=== PATIENT | female | born 1995 | race Two or more races ===

== ENCOUNTER 2019-09-07 08:03 | Outpatient (CLI) | payer MEDICAID ==
--- NOTE | 2019-09-07 09:19 | Ultrasound Report ---
Reason: TEST POSITIVE Procedure Date: 09/07/2019 Accession Number: [id number] / [id number] Procedure: US - OB First Trimester CPT Code: Final Report FULL RESULT: EXAM: FIRST TRIMESTER OBSTETRIC ULTRASOUND (Less than 11 weeks) EXAM DATE: 09/07/2019 08:58 AM. CLINICAL HISTORY: TEST POSITIVE. LMP: 07/19/2019. COMPARISONS: None. TECHNIQUE: Transabdominal and transvaginal ultrasound examination with static image documentation. CLINICAL DATES: EGA 7 weeks 1 day with FLOR 04/24/2020 based on LMP. ASSESSMENT: Gestational Sac: Single intrauterine. Normal shape. Mean gestational sac diameter: 41.9 mm = 9 weeks 5 days. Embryo: CRL (crown-rump length) 23.8 mm = 9 weeks 1 day (FLOR 04/10/2020). Cardiac activity: 165 beats per minute. Yolk sac: 4.4 mm. Amniotic fluid: Not accurately assessed at this gestational age. Early placenta: Posterior. Other: No perigestational fluid collection demonstrated. MATERNAL STRUCTURES: Uterus: Anteverted. Unremarkable. Cervix: Closed. Right Ovary/Adnexa: The ovary measures 3.0 x 2.9 x 2.2 cm, volume 11.0 cc. Unremarkable. Left Ovary/Adnexa: The ovary measures 3.4 x 3.2 x 2.2 cm, volume 12.5 cc. Seen only transabdominally. Free Fluid: None. Other: None. IMPRESSION: 1. Single viable intrauterine at EGA 9 weeks 1 day with FLOR 04/10/2020 based on crown-rump length, which is discordant with clinical dates (EGA 7 weeks 1 day, FLOR 04/24/2020 by LMP). 2. Assigned dating is FLOR 04/10/2020 based on current ultrasound. RADIA
--- NOTE | 2019-09-07 10:59 | Ultrasound Report ---
Reason: POSITIVE TEST, DATING Procedure Date: 09/07/2019 Accession Number: [id number] / [id number] Procedure: US - OB Transvaginal CPT Code: Final Report FULL RESULT: EXAM: FIRST TRIMESTER OBSTETRIC ULTRASOUND (Less than 11 weeks) EXAM DATE: 09/07/2019 08:58 AM. CLINICAL HISTORY: TEST POSITIVE. LMP: 07/19/2019. COMPARISONS: None. TECHNIQUE: Transabdominal and Transvaginal ultrasound examination with static image documentation. CLINICAL DATES: EGA 7 weeks 1 day with FLOR 04/24/2020 based on LMP. ASSESSMENT: Gestational Sac: Single intrauterine. Mean gestational sac diameter: 42 mm = 9 weeks 5 days. Embryo: CRL (crown-rump length) 24 mm = 9 weeks 1 day. Cardiac activity: 164 beats per minute. Yolk sac: 4 mm. Amniotic fluid: Not accurately assessed at this gestational age. Early placenta: Not visible at this gestational age. Other: No perigestational fluid collection demonstrated. MATERNAL STRUCTURES: Uterus: Anteverted. Unremarkable. Cervix: Closed. Right Ovary/Adnexa: The ovary measures 3.3 x 2.9 x 2.2 cm, volume 11.0 cc. Unremarkable. Left Ovary/Adnexa: The ovary measures 3.4 x 3.2 x 2.2 cm, volume 12.5 cc. Unremarkable. Free Fluid: None. Other: None. IMPRESSION: 1. Single viable intrauterine at EGA 9 weeks 1 day with FLOR 04/10/2020 based on crown-rump length, which is discordant with clinical dates. 2. Assigned dating is FLOR 04/10/2020 based on current ultrasound. RADIA
== END 2019-09-07 08:04 | disposition home or self-care (01) ==
LOC: DI 08:03
PROVIDERS: ATTEND Obstetrics & Gynecology
DX: Z32.01 Encounter for pregnancy test, result positive (principal)
CPT/HCPCS: 76801; 76817

== ENCOUNTER 2019-10-04 07:00 | Outpatient (CLI) | payer MEDICAID ==
[2019-10-04 19:01] LABS: MUDS CUTOFF CONCENTRATIONS CUTOFF CONC BELOW:
[2019-10-04 19:17] LABS: BILIRUBIN,URINE NEGATIVE (NEGATIVE); GLUCOSE, URINE (UA) NEGATIVE (NEGATIVE); KETONES,URINE (UA) NEGATIVE (NEGATIVE); LEUKOCYTE ESTERASE, URINE MODERATE (NEGATIVE); NITRITE,URINE NEGATIVE (NEGATIVE); OCCULT BLOOD,URINE NEGATIVE (NEGATIVE); PH,URINE 6.5 PH (5.0-7.5); PROTEIN,URINE NEGATIVE (NEGATIVE); UROBILINOGEN,URINE 0.2 (NORMAL) E.U./dL (NORMAL)
[2019-10-04 19:36] LABS: BACTERIA,URINE Rare /HPF (None Seen); CLARITY,URINE CLEAR (CLEAR); RBC,URINE None Seen /HPF (0-5); SQUAMOUS EPITHELIAL CELL,UR MANY Squamous (<= Few)
[2019-10-04 19:51] LABS: AMPHETAMINE SCREEN,URINE NEGATIVE (NEGATIVE); BENZODIAZEPINES SCREEN, URINE NEGATIVE (NEGATIVE); COCAINE SCREEN URINE NEGATIVE (NEGATIVE); METHADONE SCREEN, URINE NEGATIVE (NEGATIVE); METHAMPHETAMINES SCREEN, URINE NEGATIVE (NEGATIVE); OPIATE SCREEN, URINE NEGATIVE (NEGATIVE); OXYCODONE SCREEN, URINE NEGATIVE (NEGATIVE); PROPOXYPHENE SCREEN, URINE NEGATIVE (NEGATIVE); TRICYCLIC ANTIDEPRESSANT,URINE NEGATIVE (NEGATIVE)
[2019-10-04 23:46] LABS: TRICHOMONAS VAGINALIS DNA NEGATIVE (NEGATIVE)
[2019-10-05 00:39] LABS: CANDIDA GROUP DNA POSITIVE (NEGATIVE); CANDIDA KRUSEI DNA NEGATIVE (NEGATIVE); TRICHOMONAS VAGINALIS DNA NEGATIVE (NEGATIVE)
== END 2019-10-04 23:59 | disposition home or self-care (01) ==
LOC: LAB.R 07:00
PROVIDERS: ATTEND Advanced Practice Midwife
DX: Z34.90 Encounter for supervision of normal pregnancy, unspecified, unspecified trimester (principal); Z11.3 Encounter for screening for infections with a predominantly sexual mode of transmission
CPT/HCPCS: 80306; 81001; 87086; 87491; 87591; 87661; 87801

== ENCOUNTER 2019-10-11 08:00 | Outpatient (CLI) | payer MEDICAID ==
[2019-10-11 17:45] LABS: BASOPHILS % (AUTO) 0.1 %; EOSINOPHILS # (AUTO) 0.1 10^3/uL (0.0-0.7); EOSINOPHILS % (AUTO) 0.9 %; HGB - HEMOGLOBIN 13.4 g/dL (12.0-16.0); LYMPHOCYTES # (AUTO) 3.2 10^3/uL (1.5-3.5); LYMPHOCYTES % (AUTO) 30.3 %; MEAN CORPUSCULAR HEMOGLOBIN 29.6 pg (27.0-31.0); MEAN CORPUSCULAR HGB CONC 33.3 g/dL (32.0-36.0); MEAN CORPUSCULAR VOLUME 88.9 fL (81.0-99.0); MEAN PLATELET VOLUME 10.8 fL (7.9-10.8); MONOCYTES # (AUTO) 0.6 10^3/uL (0.0-1.0); MONOCYTES % (AUTO) 5.5 %; NEUTROPHILS # (AUTO) 6.6 10^3/uL (1.5-6.6); NEUTROPHILS % (AUTO) 62.6 %; PLT - PLATELET COUNT 290 10^3/uL (130-450); RED BLOOD COUNT 4.52 10^6/uL (4.20-5.40); RED CELL DISTRIBUTION WIDTH 13.6 % (12.0-15.0); WHITE BLOOD COUNT 10.5 x10^3/uL (4.8-10.8)
[2019-10-12 08:23] LABS: HIV AG/AB 4TH GEN NON-REACTIVE (NON-REACTIVE)
[2019-10-12 12:54] LABS: HEPATITIS B SURFACE ANTIGEN NON-REACTIVE (NON-REACTIVE); HEPATITIS C ANTIBODY NON-REACTIVE (NON-REACTIVE)
== END 2019-10-11 23:59 | disposition home or self-care (01) ==
LOC: LAB.WCP 08:00
PROVIDERS: ATTEND Advanced Practice Midwife
DX: Z34.90 Encounter for supervision of normal pregnancy, unspecified, unspecified trimester (principal)
CPT/HCPCS: 36415; 81599; 85025; 86592; 86762; 86803; 86850; 86900; 86901; 87340; 87389

== ENCOUNTER 2019-11-17 08:00 | Outpatient (CLI) | payer MEDICAID ==
[2019-11-17 20:52] LABS: CANDIDA GROUP DNA NEGATIVE (NEGATIVE); CANDIDA KRUSEI DNA NEGATIVE (NEGATIVE); TRICHOMONAS VAGINALIS DNA NEGATIVE (NEGATIVE)
[2019-11-17 21:39] LABS: TRICHOMONAS VAGINALIS DNA NEGATIVE (NEGATIVE)
== END 2019-11-17 23:59 | disposition home or self-care (01) ==
LOC: LAB.R 08:00
PROVIDERS: ATTEND Advanced Practice Midwife
DX: A56.09 Other chlamydial infection of lower genitourinary tract (principal); N76.0 Acute vaginitis; B37.3 Candidiasis of vulva and vagina
CPT/HCPCS: 87491; 87591; 87661; 87801

== ENCOUNTER 2019-11-17 11:37 | Outpatient (CLI) | payer MEDICAID | END 2019-11-17 11:38 | disposition home or self-care (01) | LOC: LAB 11:37 | PROVIDERS: ATTEND Advanced Practice Midwife | DX: Z34.90 Encounter for supervision of normal pregnancy, unspecified, unspecified trimester (principal) | CPT/HCPCS: 36415; 84443 ==

== ENCOUNTER 2019-11-19 13:27 | Outpatient (CLI) | payer MEDICAID ==
[2019-11-19 13:55] VITALS: BP 125/69
--- NOTE | 2019-11-19 14:38 | PROVIDER PROGRESS NOTE ---
- HPI Chief Complaint: Other Current : 23 yo at 19+4 wga here with pelvic pain and a gush of fluid. No recent intercourse. CT and BV in early with recent TOYA. Patient reports having bilateral lower quadrant pain radiating to back. Has a picture of the fluid in her underwear, colorless and ran to back of underwear. Did not completely soak undergarments. Occasionally loses urine with coughing or sneezing. [place] fluid in the vagina as if she was having start of menses. No N/V. Pain mild. Only occasionally feels movement at baseline. Vital Signs Temperature 98.2 F 11/19/19 13:53 Heart Rate 86 11/19/19 13:53 Respiratory Rate 16 11/19/19 13:53 Blood Pressure 125/69 11/19/19 13:53 Temperature 98.2 F 11/19/19 13:53 Heart Rate 86 11/19/19 13:53 Respiratory Rate 16 11/19/19 13:53 Blood Pressure 125/69 11/19/19 13:53 O2 Saturation - Exam GEN: NAD RESP: nl effort CV: RR ABD: gravid, S&NT BACK: No CVA tenderness or palpable tenderness. Cannot elicit discomfort EXT: BLE edema, 1+ FHTs 150s SSE: closed, long, small amount of white mucus, no fluid per RN exam GCCT, Vaginitis panel, Rom+ collected Neg nitrazine UA pending - Plan Plan: 23 yo at 19+4 ega with pelvic pain and gush of fluid GCCT/vaginitis panel/ ROM+/UA pending TVCL and MELINDA ordered Nitrazne negative.
[2019-11-19 15:05] LABS: MUDS CUTOFF CONCENTRATIONS CUTOFF CONC BELOW:
[2019-11-19 15:09] LABS: BILIRUBIN,URINE NEGATIVE (NEGATIVE); GLUCOSE, URINE (UA) NEGATIVE (NEGATIVE); KETONES,URINE (UA) NEGATIVE (NEGATIVE); LEUKOCYTE ESTERASE, URINE NEGATIVE (NEGATIVE); NITRITE,URINE NEGATIVE (NEGATIVE); OCCULT BLOOD,URINE NEGATIVE (NEGATIVE); PROTEIN,URINE NEGATIVE (NEGATIVE); UROBILINOGEN,URINE 0.2 (NORMAL) E.U./dL (NORMAL)
[2019-11-19 15:24] LABS: AMPHETAMINE SCREEN,URINE NEGATIVE (NEGATIVE); BENZODIAZEPINES SCREEN, URINE NEGATIVE (NEGATIVE); COCAINE SCREEN URINE NEGATIVE (NEGATIVE); METHADONE SCREEN, URINE NEGATIVE (NEGATIVE); METHAMPHETAMINES SCREEN, URINE NEGATIVE (NEGATIVE); OPIATE SCREEN, URINE NEGATIVE (NEGATIVE); OXYCODONE SCREEN, URINE NEGATIVE (NEGATIVE); PROPOXYPHENE SCREEN, URINE NEGATIVE (NEGATIVE); TRICYCLIC ANTIDEPRESSANT,URINE NEGATIVE (NEGATIVE)
[2019-11-19 15:27] LABS: RUPTURE OF MEMBRANES PLUS NEGATIVE (NEGATIVE)
[2019-11-19 15:30] LABS: BACTERIA,URINE Rare /HPF (None Seen); CLARITY,URINE CLEAR (CLEAR); RBC,URINE None Seen /HPF (0-5); SQUAMOUS EPITHELIAL CELL,UR MANY Squamous (<= Few)
[2019-11-19 16:58] LABS: CANDIDA GROUP DNA NEGATIVE (NEGATIVE); CANDIDA KRUSEI DNA NEGATIVE (NEGATIVE); TRICHOMONAS VAGINALIS DNA NEGATIVE (NEGATIVE)
--- NOTE | 2019-11-19 17:54 | Ultrasound Report ---
PROCEDURE: OB Transvaginal INDICATIONS: please assess cervical length and MELINDA please OUTSIDE/PRIOR DATING DATA: Last menstrual period (LMP): 07/19/2019. LMP-based estimated date of delivery (FLOR): 04/24/2020. First dating scan (date and location): 09/07/2019. Estimated date of delivery (FLOR) from first dating scan: 04/10/2020. TECHNIQUE: Real-time scanning was performed of the fetus, with image documentation. Endovaginal scanning: Not performed. COMPARISON: OB ultrasound 09/07/2019. FINDINGS: General: A single living intrauterine gestation is present. Presentation: Variable. Placenta: Placental position is posterior, without previa. Amniotic fluid index: 16.4 cm, normal for gestational age. (Largest pocket 5.1 cm). heart rate: 135 beats per minute. Maternal cervical canal: 3.3 cm long; normal length is 2.5 cm or more. No funneling. Estimated gestational age from initial scan: 19 weeks 4 days. Composite gestational age from present scan: Not performed Measurement variability for biometric dating: +/- 10 days from 12-20 weeks gestation, +/- 2 weeks fro m 20-30 weeks gestation, +/- 3 weeks for 30 weeks gestation or later. IMPRESSION: 1. Nelson living intrauterine at 19 weeks 4 days based on prior dating. 2. Normal placenta and amniotic fluid. 3. Normal cervical length. No funneling. Reviewed by: Oh Figueredo MD on 11/19/2019 5:53 PM PDT Approved by: Oh Figueredo MD on 11/19/2019 5:53 PM PDT Station ID: [id number]
--- NOTE | 2019-11-19 17:57 | Ultrasound Report ---
PROCEDURE: OB Transvaginal INDICATIONS: please assess cervical length and MELINDA please OUTSIDE/PRIOR DATING DATA: Last menstrual period (LMP): 07/19/2019. LMP-based estimated date of delivery (FLOR): 04/24/2020. First dating scan (date and location): 09/07/2019. Estimated date of delivery (FLOR) from first dating scan: 04/10/2020. TECHNIQUE: Real-time scanning was performed of the fetus, with image documentation. Endovaginal scanning: Performed. COMPARISON: OB ultrasound 09/07/2019. FINDINGS: General: A single living intrauterine gestation is present. Presentation: Variable. Placenta: Placental position is posterior, without previa. Amniotic fluid index: 16.4 cm, normal for gestational age. (Largest pocket 5.1 cm). heart rate: 135 beats per minute. Maternal cervical canal: 3.3 cm long; normal length is 2.5 cm or more. No funneling. Estimated gestational age from initial scan: 19 weeks 4 days. Composite gestational age from present scan: Not performed Measurement variability for biometric dating: +/- 10 days from 12-20 weeks gestation, +/- 2 weeks fro m 20-30 weeks gestation, +/- 3 weeks for 30 weeks gestation or later. IMPRESSION: 1. Nelson living intrauterine at 19 weeks 4 days based on prior dating. 2. Normal placenta and amniotic fluid. 3. Normal cervical length. No funneling. Reviewed by: Oh Figueredo MD on 11/19/2019 5:56 PM PDT Approved by: Oh Figueredo MD on 11/19/2019 5:56 PM PDT Station ID: [id number]
[2019-11-19 21:28] LABS: TRICHOMONAS VAGINALIS DNA NEGATIVE (NEGATIVE)
== END 2019-11-19 17:15 | disposition home or self-care (01) ==
LOC: WFO 13:27 → FBP 13:32 → WFO 17:15
PROVIDERS: ATTEND Obstetrics & Gynecology
DX: O99.89 Other specified diseases and conditions complicating pregnancy, childbirth and the puerperium (principal); Z3A.19 19 weeks gestation of pregnancy; R10.2 Pelvic and perineal pain; N89.8 Other specified noninflammatory disorders of vagina
CPT/HCPCS: 76815; 76817; 80306; 81001; 84112; 87086; 87491; 87591; 87661; 87801; 99213

== ENCOUNTER 2019-11-24 10:57 | Outpatient (CLI) | payer MEDICAID ==
--- NOTE | 2019-11-24 16:25 | Ultrasound Report ---
PROCEDURE: OB Detailed Eval INDICATIONS: ENCOUNTER FOR OTHER SPECIFIED SCREENING OUTSIDE/PRIOR DATING DATA: Last menstrual period (LMP): 07/19/2019. LMP-based estimated date of delivery (FLOR): 03/28/2020. First dating scan (date and location): 09/07/2019. Estimated date of delivery (FLOR) from first dating scan: 06/10/2019. TECHNIQUE: Real-time scanning was performed of the fetus, with image documentation and biometric measurements. COMPARISON: OB ultrasound 09/07/2019, 11/19/2019 FINDINGS: General: A single living intrauterine gestation is present. Presentation: Breech Placenta: Placental position is posterior, without previa. Amniotic fluid index: 14.2 cm, 50th percentile for gestational age. Largest pocket 3.9 cm heart rate: 155 beats per minute. Maternal cervical canal: 4.5 cm long; normal length is 2.5 cm or more. biometrics: Biparietal diameter: 4.6 cm 19 weeks 6 days Head circumference: 17.5 cm 20 weeks 0 days Abdominal circumference: 14.8 cm 20 weeks 1 day Femur length: 3.2 cm 19 weeks 6 days Estimated gestational age from initial scan: 20 weeks 2 days Composite gestational age from present scan: 19 weeks 5 days Estimated weight and percentile: 325 g 29th percentile Measurement variability in biometric dating: +/- 10 days from 12-20 weeks gestation, +/- 2 weeks from 20-30 weeks gestation, +/- 3 weeks at 30 weeks gestation or later. Anatomic survey: Neuro: Ventricles are normal at less than 10 mm. Cisterna magna is normal at 3-11 mm. Cerebellum i s normal in size and morphology. Nuchal skin fold: Normal at less than 6 mm between 14 and 20 weeks gestational age. Face: Nose and lips, facial profile are normal. Spine: No evidence for spina bifida. Heart: 4-chambered heart and ventricular outflow tracts are suboptimally evaluated. Diaphragm: Diaphragm is intact. Stomach: Left-sided stomach is present. Kidneys: No hydronephrosis. Normal is less than 5 mm in 2nd trimester, less than 7 mm in 3rd trimester. Cord: 3 vessel cord has orthotopic insertion. Bladder: Normal in size. Extremities: All 4 extremities are visualized. IMPRESSION: 1. Single live intrauterine with ultrasound gestational age today of 19 weeks 5 days, kristin red to ultrasound age of 20 weeks 2 days from initial ultrasound. FLOR of 04/10/2020. 2. heart and outflow tracts are suboptimally evaluated. Follow-up evaluation is recommended. Reviewed by: Elsie Houston MD on 11/24/2019 4:24 PM PDT Approved by: Elsie Houston MD on 11/24/2019 4:24 PM PDT Station ID: [id number]
== END 2019-11-24 10:58 | disposition home or self-care (01) ==
LOC: DI 10:57
PROVIDERS: ATTEND Advanced Practice Midwife
DX: Z36.89 Encounter for other specified antenatal screening (principal)
CPT/HCPCS: 76811

== ENCOUNTER 2020-01-14 09:52 | Outpatient (CLI) | payer MEDICAID ==
[2020-01-14 11:07] LABS: HGB - HEMOGLOBIN 12.3 g/dL (12.0-16.0); MEAN CORPUSCULAR HEMOGLOBIN 31.5 pg (27.0-31.0); MEAN CORPUSCULAR HGB CONC 34.9 g/dL (32.0-36.0); MEAN PLATELET VOLUME 9.7 fL (7.9-10.8); RED BLOOD COUNT 3.91 10^6/uL (4.20-5.40); RED CELL DISTRIBUTION WIDTH 13.8 % (12.0-15.0); WHITE BLOOD COUNT 8.5 x10^3/uL (4.8-10.8)
== END 2020-01-14 09:53 | disposition home or self-care (01) ==
LOC: LAB 09:52
PROVIDERS: ATTEND Advanced Practice Midwife
DX: Z34.90 Encounter for supervision of normal pregnancy, unspecified, unspecified trimester (principal)
CPT/HCPCS: 36415; 82950; 85027

== ENCOUNTER 2022-06-11 08:00 | Outpatient (CLI) | payer MEDICAID ==
[2022-06-11 18:32] LABS: BILIRUBIN,URINE NEGATIVE (NEGATIVE); GLUCOSE, URINE (UA) NEGATIVE (NEGATIVE); KETONES,URINE (UA) TRACE mg/dL (NEGATIVE); LEUKOCYTE ESTERASE, URINE SMALL (NEGATIVE); NITRITE,URINE POSITIVE (NEGATIVE); OCCULT BLOOD,URINE TRACE-INTA (NEGATIVE); PROTEIN,URINE NEGATIVE (NEGATIVE); UROBILINOGEN,URINE 0.2 (NORMAL) E.U./dL (NORMAL)
[2022-06-11 18:35] LABS: CLARITY,URINE CLOUDY (CLEAR); HCG UR QUAL NEGATIVE
[2022-06-11 19:01] LABS: BACTERIA,URINE Many /HPF (None Seen); RBC,URINE 0-5 /HPF (0-5); SQUAMOUS EPITHELIAL CELL,UR MOD Squamous (<= Few); WBC,URINE >25 /HPF (0-5)
[2022-06-11 22:19] LABS: BACTERIAL VAGINOSIS DNA NEGATIVE (NEGATIVE); CANDIDA GLABRATA DNA NEGATIVE (NEGATIVE); CANDIDA GROUP DNA NEGATIVE (NEGATIVE); CANDIDA KRUSEI DNA NEGATIVE (NEGATIVE); TRICHOMONAS VAGINALIS DNA NEGATIVE (NEGATIVE)
[2022-06-12 00:40] LABS: CHLAMYDIA TRACHOMATIS DNA NEGATIVE (NEGATIVE); NEISSERIA GONORRHOEAE DNA NEGATIVE (NEGATIVE)
== END 2022-06-11 23:59 | disposition home or self-care (01) ==
LOC: LAB.N 08:00
PROVIDERS: ATTEND Nurse Practitioner
DX: N89.8 Other specified noninflammatory disorders of vagina (principal); R30.0 Dysuria; R82.79 Other abnormal findings on microbiological examination of urine
CPT/HCPCS: 81001; 81025; 81514; 87077; 87086; 87181; 87491; 87591; 87661

== ENCOUNTER 2023-06-05 08:00 | Outpatient (CLI) | payer MEDICAID ==
[2023-06-05 17:54] LABS: BILIRUBIN,URINE NEGATIVE (NEGATIVE); GLUCOSE, URINE (UA) NEGATIVE (NEGATIVE); KETONES,URINE (UA) 15 mg/dL (NEGATIVE); LEUKOCYTE ESTERASE, URINE SMALL (NEGATIVE); NITRITE,URINE NEGATIVE (NEGATIVE); OCCULT BLOOD,URINE NEGATIVE (NEGATIVE); PH,URINE 6.5 PH (5.0-7.5); PROTEIN,URINE NEGATIVE (NEGATIVE); UROBILINOGEN,URINE 0.2 (NORMAL) E.U./dL (NORMAL)
[2023-06-05 18:23] LABS: BACTERIA,URINE Few /HPF (None Seen); CLARITY,URINE CLEAR (CLEAR); RBC,URINE 0-5 /HPF (0-5); SQUAMOUS EPITHELIAL CELL,UR RARE Squamous (<= Few)
== END 2023-06-05 23:59 | disposition home or self-care (01) ==
LOC: LAB.WC 08:00
PROVIDERS: ATTEND Nurse Practitioner
DX: Z34.90 Encounter for supervision of normal pregnancy, unspecified, unspecified trimester (principal)
CPT/HCPCS: 81001; 87086

== ENCOUNTER 2023-06-17 08:01 | Outpatient (CLI) | payer MEDICAID ==
--- NOTE | 2023-06-17 10:08 | Ultrasound Report ---
PROCEDURE: OB 1st Trimester INDICATIONS: POSITIVE TEST OUTSIDE/PRIOR DATING DATA: Last menstrual period (LMP): Unknown. LMP-based estimated date of delivery (FLOR): Not applicable. First dating scan (date and location): Today's exam. Estimated date of delivery (FLOR) from first dating scan: 12/20/2023. TECHNIQUE: Real-time scanning was performed of the fetus, with image documentation and biometric measurements. Endovaginal scanning: Not performed. COMPARISON: None. FINDINGS: General: A single living intrauterine gestation is present. Presentation: Variable Placenta: Placental position is anterior, without previa. heart rate: 150 beats per minute. Maternal cervical canal: 4.0 cm long; normal length is 2.5 cm or more. biometrics: Biparietal diameter: 2.2 cm, 13 weeks 4 days Head circumference: 8.4 cm, 13 weeks 5 days Abdominal circumference: 6.8 cm, 13 weeks 3 days Femur length: 1.09 cm, 13 weeks 2 days Estimated gestational age from initial scan: not applicable. Composite gestational age from present scan: 13 weeks 3 days Estimated weight and percentile: 75 g Measurement variability for biometric dating: +/- 10 days from 12-20 weeks gestation, +/- 2 weeks fro m 20-30 weeks gestation, +/- 3 weeks for 30 weeks gestation or later. IMPRESSION: Single living intrauterine at 13 weeks 3 days, FLOR of 12/17/2023. Reviewed by: Mario Carroll MD on 06/17/2023 10:07 AM PST Approved by: Mario Carroll MD on 06/17/2023 10:07 AM PST Station ID: [id number]
== END 2023-06-17 08:02 | disposition home or self-care (01) ==
LOC: DI 08:01
PROVIDERS: ATTEND Nurse Practitioner
DX: Z34.92 Encounter for supervision of normal pregnancy, unspecified, second trimester (principal)

== ENCOUNTER 2023-06-20 08:00 | Outpatient (CLI) | payer MEDICAID ==
[2023-06-20 20:27] LABS: CHLAMYDIA TRACHOMATIS DNA NEGATIVE (NEGATIVE); NEISSERIA GONORRHOEAE DNA NEGATIVE (NEGATIVE); TRICHOMONAS VAGINALIS DNA NEGATIVE (NEGATIVE)
== END 2023-06-20 23:59 | disposition home or self-care (01) ==
LOC: LAB.WC 08:00
PROVIDERS: ATTEND Nurse Practitioner
DX: Z11.3 Encounter for screening for infections with a predominantly sexual mode of transmission (principal)
CPT/HCPCS: 87491; 87591; 87661

== ENCOUNTER 2023-07-02 14:55 | Outpatient (CLI) | payer MEDICAID ==
[2023-07-02 15:27] LABS: BASOPHILS % (AUTO) 0.1 %; EOSINOPHILS # (AUTO) 0.2 10^3/uL (0.0-0.7); EOSINOPHILS % (AUTO) 2.7 %; HCT - HEMATOCRIT 37.1 % (37.0-47.0); HGB - HEMOGLOBIN 12.8 g/dL (12.0-16.0); LYMPHOCYTES # (AUTO) 2.8 10^3/uL (1.5-3.5); LYMPHOCYTES % (AUTO) 36.2 %; MEAN CORPUSCULAR HEMOGLOBIN 30.3 pg (27.0-31.0); MEAN CORPUSCULAR HGB CONC 34.5 g/dL (32.0-36.0); MEAN CORPUSCULAR VOLUME 87.9 fL (81.0-99.0); MEAN PLATELET VOLUME 10.6 fL (7.9-10.8); MONOCYTES # (AUTO) 0.4 10^3/uL (0.0-1.0); MONOCYTES % (AUTO) 5.1 %; NEUTROPHILS # (AUTO) 4.3 10^3/uL (1.5-6.6); NEUTROPHILS % (AUTO) 55.6 %; PLT - PLATELET COUNT 204 10^3/uL (130-450); RED BLOOD COUNT 4.22 10^6/uL (4.20-5.40); RED CELL DISTRIBUTION WIDTH 13.4 % (12.0-15.0); WHITE BLOOD COUNT 7.7 x10^3/uL (4.8-10.8)
[2023-07-02 16:35] LABS: CREATININE,URINE 34.6 mg/dL; PROTEIN/CREATININE RATIO,URINE 0.1 (<=0.2)
[2023-07-02 16:35] LABS: ALBUMIN 3.8 g/dL (3.2-5.5); ALBUMIN/GLOBULIN RATIO 1.5 (1.0-2.2); BILIRUBIN,TOTAL 0.3 mg/dL (0.2-1.0); CALCIUM 9.7 mg/dL (8.5-10.3); CREATININE 0.5 mg/dL (0.6-1.3); POTASSIUM 3.5 mmol/L (3.5-4.5); TOTAL PROTEIN 6.4 g/dL (6.4-8.9)
[2023-07-02 16:44] LABS: THYROID STIMULATING HORMONE 1.56 uIU/mL (0.34-5.60)
[2023-07-03 07:11] LABS: HBsAG SCREEN Negative (Negative); RPR Non Reactive (Non Reactive)
[2023-07-03 08:11] LABS: VARICELLA-ZOSTER AB IGG 1713 index (Immune >165)
[2023-07-04 00:08] LABS: HCV AB Non Reactive (Non Reactive); HIV SCREEN 4TH GENERATION Non Reactive (Non Reactive)
== END 2023-07-02 14:56 | disposition home or self-care (01) ==
LOC: LAB 14:55
PROVIDERS: ATTEND Nurse Practitioner
DX: O99.891 Other specified diseases and conditions complicating pregnancy (principal); I49.9 Cardiac arrhythmia, unspecified; Z87.59 Personal history of other complications of pregnancy, childbirth and the puerperium
CPT/HCPCS: 36415; 80053; 82570; 84156; 84443; 84550; 85025; 85027; 86592; 86762; 86787; 86803; 86850; 86900; 86901; 87340; 87389

== ENCOUNTER 2023-08-06 12:11 | Outpatient (CLI) | payer MEDICAID | END 2023-08-06 12:12 | disposition home or self-care (01) | LOC: LAB 12:11 | PROVIDERS: ATTEND Nurse Practitioner | DX: O09.92 Supervision of high risk pregnancy, unspecified, second trimester (principal); Z86.32 Personal history of gestational diabetes | CPT/HCPCS: 36415; 82105; 82950 ==

== ENCOUNTER 2023-08-11 19:32 | Outpatient (CLI) | payer MEDICAID ==
[2023-08-11 20:22] VITALS: BP 118/57
--- NOTE | 2023-08-11 20:32 | PROVIDER PROGRESS NOTE ---
- HPI Chief Complaint: Pain, non-labor Current : Vital Signs Temperature 98.8 F 08/11/23 19:46 Heart Rate 72 08/11/23 19:46 Respiratory Rate 18 08/11/23 19:46 Blood Pressure 107/68 08/11/23 19:46 Temperature 98.8 F 08/11/23 19:46 Heart Rate 67 08/11/23 20:21 Respiratory Rate 18 08/11/23 20:21 Blood Pressure 118/57 L 08/11/23 20:21 O2 Saturation If not protocol: Oxygen Flow, liters/minute - Plan Plan: Patient is a 27-year-old -0-0-1 at 21 weeks 1 day gestation presenting today for backache. 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 She had some lower abdominal cramping earlier this morning, but nothing currently. Has good movement. No leaking or bleeding. Does not believe she has contractions. No dysuria. Physical Exam Constitutional: alert, no acute distress, well hydrated, well developed, well nourished, appropriate dress. Cardiovascular: Regular rate and rhythm. Respiratory: no respiratory distress. Abdomen: nondistended, nontender, no guarding. Back: No paraspinal tenderness. Minimal amount bilaterally in lateral lumbar area. No CVA tenderness. Psych: affect and mood appropriate, normal interaction, good eye contact. heart tones: 140s. [place]: Quiescent Assessment and plan 1. Back strain -Patient does not appear to be in any significant distress. -Gave patient handout on back exercises/stretches. Heating pad okay on the back and warm baths. Can take Tylenol. -Educated on lifting restrictions and encouraged conversation with her employer about these. She is already given her 2 weeks notice and will look for a different job that does not require her to lift as much. 2. 21 weeks gestation -Routine OB care -No distress or abdominal contractions seen on monitor. 3. Abdominal cramps -Continue to monitor. If these return, can call for advice or come back for assistance. If they do not return, may be related to muscle tightness with flexing back.
== END 2023-08-11 20:30 | disposition home or self-care (01) ==
LOC: WFO 19:32 → FBP 19:34 → WFO 20:30
PROVIDERS: ATTEND Obstetrics & Gynecology
DX: O9A.212 Injury, poisoning and certain other consequences of external causes complicating pregnancy, second trimester (principal); S39.012A Strain of muscle, fascia and tendon of lower back, initial encounter; O99.891 Other specified diseases and conditions complicating pregnancy; R10.30 Lower abdominal pain, unspecified; Z3A.21 21 weeks gestation of pregnancy; X50.9XXA Other and unspecified overexertion or strenuous movements or postures, initial encounter; X50.0XXA Overexertion from strenuous movement or load, initial encounter
CPT/HCPCS: 99212; 99213

== ENCOUNTER 2023-08-13 07:10 | Outpatient (CLI) | payer MEDICAID ==
--- NOTE | 2023-08-13 20:47 | Ultrasound Report ---
PROCEDURE: OB Anatomy Scan INDICATIONS: SUPERVISION OF OUTSIDE/PRIOR DATING DATA: Last menstrual period (LMP): Unknown. LMP-based estimated date of delivery (FLOR): Unknown. First dating scan (date and location): 06/17/2023. Estimated date of delivery (FLOR) from first dating scan: 12/20/2023. The below data below was generated using the study generated FLOR of 12/20/2023 TECHNIQUE: Real-time scanning was performed of the fetus, with image documentation and biometric measurements. Endovaginal scanning: Not performed. COMPARISON: 06/17/2023 FINDINGS: General: A single living intrauterine gestation is present. Presentation: Variable Placenta: Placental position is anterior, without previa. Amniotic fluid index: 12.6 cm, within normal limits for gestational age. heart rate: 145 beats per minute. Maternal cervical canal: 4.5 cm long; normal length is 2.5 cm or more. biometrics: Biparietal diameter: 5.0 cm, 21 weeks, 0 day, 27% Head circumference: 19.0 cm, 21 weeks, 2 days, 28% Abdominal circumference: 16.6 cm, 21 weeks, 5 days, 45% Femur length: 3.6 cm, 21 weeks, 2 days, 31% Estimated gestational age from initial scan: 21 weeks, 4 days Composite gestational age from present scan: 21 weeks, 2 days Estimated weight and percentile: 425.5 g, 38% Measurement variability in biometric dating: +/- 10 days from 12-20 weeks gestation, +/- 2 weeks from 20-30 weeks gestation, +/- 3 weeks at 30 weeks gestation or later. Anatomic survey: Neuro: Ventricles are normal at less than 10 mm. Cisterna magna is normal at 3-11 mm. Cerebellum i s normal in size and morphology. Nuchal skin fold: 6.2 mm. Normal at less than 6 mm between 14 and 20 weeks gestational age. Face: Nose and lips, facial profile are normal. Spine: No evidence for spina bifida. Heart: 4-chambered heart is present, with normal ventricular outflow tracts. Diaphragm: Diaphragm is intact. Stomach: Left-sided stomach is present. Kidneys: No hydronephrosis. Normal is less than 5 mm in 2nd trimester, less than 7 mm in 3rd trimester. Cord: 3 vessel cord has orthotopic insertion. Bladder: Normal in size. Extremities: All 4 extremities are visualized. IMPRESSION: 1. Single live intrauterine gestation with fetus in variable presentation. heart rate is 145 bp m. Normal MELINDA equals 12.6 cm. Normal growth with estimated weight at 38%. 2. Borderline thickened nuchal fold as above. 3. Rest of the anatomic survey is normal. Reviewed by: Hernan Pace MD on 08/13/2023 8:46 PM PDT Approved by: Hernan Pace MD on 08/13/2023 8:46 PM PDT Station ID: [id number]
== END 2023-08-13 07:11 | disposition home or self-care (01) ==
LOC: DI 07:10
PROVIDERS: ATTEND Nurse Practitioner
DX: O09.92 Supervision of high risk pregnancy, unspecified, second trimester (principal); O28.3 Abnormal ultrasonic finding on antenatal screening of mother; Z3A.21 21 weeks gestation of pregnancy

== ENCOUNTER 2023-09-16 20:58 | Outpatient (CLI) | payer MEDICAID | END 2023-09-16 23:59 | disposition critical access hospital (66) | LOC: EMS 20:58 | DX: O99.891 Other specified diseases and conditions complicating pregnancy (principal); R10.2 Pelvic and perineal pain; Z3A.26 26 weeks gestation of pregnancy | CPT/HCPCS: A0425; A0429; A0999 ==

== ENCOUNTER 2023-09-16 21:17 | Emergency (ER) | payer MEDICAID ==
[2023-09-16 21:27] VITALS: BP 129/77; O2SAT 95
--- NOTE | 2023-09-16 21:31 | ED Physician Documentation ---
History of Present Illness - Stated complaint Stated Complaint: GROIN PX/26 WEEKS PREG - Chief complaint Chief Complaint: Abd Pain - History obtained from History obtained from: Patient - Additonal information Additional information: 27-year-old G2, P1 at 26 weeks gestation is brought in by EMS. The history from the EMS folks is significantly different from the history I obtained myself. EMS says she developed one-sided groin pain while running with her child. For me I walk in the room and she says she has bilateral groin pain and cramping that comes every minute or so and feels like contractions. She has not lost any fluid or had any bleeding. PD PAST MEDICAL HISTORY - Present Medications Home Medications: Ambulatory Orders Medication Instructions Recorded Confirmed Aspirin [[place] Aspirin] 09/16/23 Pnv No.95/Ferrous Fum/Folic AC 09/16/23 [ Tablet] - Allergies Allergies/Adverse Reactions: Allergies Allergy/AdvReac Type Severity Reaction Status Date / Time No Known Drug Allergies Allergy Verified 09/16/23 21:22 PD ED PE NORMAL - Vitals Vital signs reviewed: Yes - General General: Alert and oriented X 3, Other (Intermittently uncomfortable and clutches the bed as though she was in labor.) - Cardiac Cardiac: RRR, No murmur - Respiratory Respiratory: No respiratory distress, Clear bilaterally - Abdomen Abdomen: Normal bowel sounds, Soft, Non tender, Other (Gravid belly, nontender, bedside ultrasound showing live IUP with heart rate 142) - Female Female : Insight Leader present ([place], RN), Other (No bleeding or fluid loss obvious. ) - Neuro Neuro: Alert and oriented X 3, Normal speech Results - Vitals Vitals: Vital Signs - 24 hr 09/16/23 21:24 Temperature 36.5 C Heart Rate 93 Respiratory 20 Rate Blood Pressure 129/77 O2 Saturation 95 Oxygen O2 Source Room air PD Medical Decision Making - ED course ED course: The current history is more concerning for labor. As such after initial evaluation I ordered 25 mcg of fentanyl and spoke with our on-call OB and she will be transferred over to labor and delivery unit for evaluation for that. Of note this chart is flagged for discharge as I believe they have to create a new account there given the circumstances. Departure - Departure Disposition: 01 Home, Self Care Clinical Impression: Pelvic cramping Condition: Stable Forms: PCP List
[2023-09-16] MEDS: fentaNYL 100 MCG/2 ML VIAL IVP STA (21:35)
== END 2023-09-16 21:37 | disposition home or self-care (01) ==
LOC: EDUNIT# → ED 21:17
DX: O26.892 Other specified pregnancy related conditions, second trimester (principal); R10.32 Left lower quadrant pain; R10.31 Right lower quadrant pain; Z3A.26 26 weeks gestation of pregnancy
CPT/HCPCS: 96374; 99284

== ENCOUNTER 2023-09-16 21:37 | Outpatient (CLI) | payer MEDICAID ==
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
[2023-09-16] MEDS: ACETAMINOPHEN 500 MG TABLET PO SCH (22:57)
[2023-09-17 00:06] LABS: BILIRUBIN,URINE NEGATIVE (NEGATIVE); GLUCOSE, URINE (UA) NEGATIVE (NEGATIVE); KETONES,URINE (UA) NEGATIVE (NEGATIVE); LEUKOCYTE ESTERASE, URINE SMALL (NEGATIVE); NITRITE,URINE NEGATIVE (NEGATIVE); OCCULT BLOOD,URINE NEGATIVE (NEGATIVE); PROTEIN,URINE NEGATIVE (NEGATIVE); UROBILINOGEN,URINE 0.2 (NORMAL) E.U./dL (NORMAL)
[2023-09-17 00:08] LABS: CLARITY,URINE HAZY (CLEAR)
[2023-09-17 00:14] LABS: WBC,URINE 0-3 /HPF (0-5)
[2023-09-17 00:15] LABS: BACTERIA,URINE Few /HPF (None Seen); RBC,URINE 0-5 /HPF (0-5); SQUAMOUS EPITHELIAL CELL,UR MOD Squamous (<= Few)
[2023-09-17 01:06] VITALS: BP 117/61
[2023-09-17 02:31] LABS: BACTERIAL VAGINOSIS DNA NEGATIVE (NEGATIVE); CANDIDA GLABRATA DNA NEGATIVE (NEGATIVE); CANDIDA GROUP DNA NEGATIVE (NEGATIVE); CANDIDA KRUSEI DNA NEGATIVE (NEGATIVE); TRICHOMONAS VAGINALIS DNA NEGATIVE (NEGATIVE)
[2023-09-17 03:41] LABS: CHLAMYDIA TRACHOMATIS DNA NEGATIVE (NEGATIVE); NEISSERIA GONORRHOEAE DNA NEGATIVE (NEGATIVE)
== END 2023-09-17 00:10 | disposition home or self-care (01) ==
LOC: WFO 21:37 → FBP 21:38 → WFO 09-17 00:10
PROVIDERS: ATTEND Obstetrics & Gynecology
DX: O99.891 Other specified diseases and conditions complicating pregnancy (principal); R10.2 Pelvic and perineal pain; O47.02 False labor before 37 completed weeks of gestation, second trimester; Z3A.26 26 weeks gestation of pregnancy
CPT/HCPCS: 81001; 81003; 81514; 87086; 87491; 87591; 87661; 87797; 99214

== ENCOUNTER 2023-10-25 14:01 | Outpatient (CLI) | payer MEDICAID ==
[2023-10-25 14:21] VITALS: BP 118/66
--- NOTE | 2023-10-25 21:38 | PROCEDURE REPORT ---
- HPI Diagnosis/Indication for NST: Other (obesity) Vital Signs Temperature 97.7 F 10/25/23 14:18 Heart Rate 82 10/25/23 14:18 Respiratory Rate 16 10/25/23 14:18 Blood Pressure 118/66 10/25/23 14:18 Temperature 97.7 F 10/25/23 14:18 Heart Rate 82 10/25/23 14:18 Respiratory Rate 16 10/25/23 14:18 Blood Pressure 118/66 10/25/23 14:18 O2 Saturation If not protocol: Oxygen Flow, liters/minute - NST Procedure patient here for NST for HTN at 32 weeks. - Results and Plan Findings/Impression: Reactive for of 32 weeks gestation or more. NST tracing contains at least two heart rate accelerations that are at least 15 beats per minute above the baseline rate and lasting at least 15 seconds from onset to return to baseline within a twenty minute period. Plan: care as scheduled. .
== END 2023-10-25 15:30 | disposition home or self-care (01) ==
LOC: WFO 14:01 → FBP 14:05 → WFO 15:30
PROVIDERS: ATTEND Obstetrics & Gynecology
DX: O99.213 Obesity complicating pregnancy, third trimester (principal); Z3A.32 32 weeks gestation of pregnancy

== ENCOUNTER 2023-10-31 18:47 | Outpatient (CLI) | payer MEDICAID ==
--- NOTE | 2023-11-02 22:03 | Ultrasound Report ---
PROCEDURE: OB Limited INDICATIONS: GDM OUTSIDE/PRIOR DATING DATA: Last menstrual period (LMP): Not provided. First dating scan (date and location): 06/17/2023, [place]. Estimated date of delivery (FLOR) from first dating scan: 12/20/2023. The below data below was generated using the ultrasound FLOR of 12/20/2023 TECHNIQUE: Real-time scanning was performed of the fetus, with image documentation. Endovaginal scanning: No COMPARISON: OB ultrasound on August 13, 2023 FINDINGS: A single living intrauterine gestation is present. Presentation: Vertex Placenta: Placental position is anterior, without previa. Amniotic fluid index: 10.5 cm, which is at 14.7 percentile. The largest pocket measures 4.1 cm. heart rate: 155 beats per minutes. Maternal cervical canal: Closed, length not recorded Estimated gestational age from initial scan: 32 weeks and 6 days. IMPRESSION: 1.Single living intrauterine gestation in vertex presentation with estimated gestational age of 32 we eks and 6 days. 2.MELINDA is 10.5 cm which is at 14.7 percentile.The largest pocket measures 4.1 cm. Reviewed by: Taurus Anaya MD on 11/02/2023 10:01 PM PDT Approved by: Taurus Anaya MD on 11/02/2023 10:01 PM PDT Station ID: [id number]
== END 2023-10-31 18:48 | disposition home or self-care (01) ==
LOC: DI 18:47
PROVIDERS: ATTEND Obstetrics & Gynecology
DX: O24.414 Gestational diabetes mellitus in pregnancy, insulin controlled (principal); Z3A.32 32 weeks gestation of pregnancy

== ENCOUNTER 2023-11-01 14:39 | Outpatient (CLI) | payer MEDICAID ==
[2023-11-01 15:01] VITALS: BP 127/66
--- NOTE | 2023-11-01 15:31 | PROCEDURE REPORT ---
- HPI Current EDU 12/20/23 Gestation 33 Weeks and 0 Days 2 Para 1 Vital Signs Temperature 97.7 F 11/01/23 14:54 Heart Rate 89 11/01/23 14:54 Respiratory Rate 20 11/01/23 14:54 Blood Pressure 127/66 11/01/23 14:54 Temperature 97.7 F 11/01/23 15:21 Heart Rate 91 11/01/23 15:21 Respiratory Rate 20 11/01/23 15:21 Blood Pressure 127/66 11/01/23 15:21 O2 Saturation If not protocol: Oxygen Flow, liters/minute - NST Procedure NST Procedure Start Date 11/01/23 Start Time 14:52 Stop Time 15:14 Vibroacoustic Stimulation Used No Patient States Movement Yes - Results and Plan Plan: Patient is a 27-year-old -0-0-1 at 33 weeks 0 days gestation here for NST. NST Performed 11/01/2023 NST Read 11/01/2023 FHT: 145 bpm baseline, moderate variability, accelerations present, no decelerations. Reactive NST [place]: Quiescent Diagnosis 33 weeks gestation A2 gestational diabetes, managed with oral antihyperglycemics Continue with scheduled OB care
== END 2023-11-01 15:18 | disposition home or self-care (01) ==
LOC: WFO 14:39 → FBP 14:41 → WFO 15:18
PROVIDERS: ATTEND Obstetrics & Gynecology
DX: O24.415 Gestational diabetes mellitus in pregnancy, controlled by oral hypoglycemic drugs (principal); Z3A.33 33 weeks gestation of pregnancy
CPT/HCPCS: 59025

== ENCOUNTER 2023-11-14 18:48 | Outpatient (CLI) | payer MEDICAID ==
--- NOTE | 2023-11-15 16:53 | Ultrasound Report ---
PROCEDURE: OB Limited INDICATIONS: GDM OUTSIDE/PRIOR DATING DATA: Last menstrual period (LMP): Unknown. LMP-based estimated date of delivery (FLOR): Not available. First dating scan (date and location): 06/17/2023, [place]. Estimated date of delivery (FLOR) from first dating scan: 12/20/2023. The below data below was generated using the ultrasound FLOR of 12/17/2023 TECHNIQUE: Real-time scanning was performed of the fetus, with image documentation. Endovaginal scanning: COMPARISON: None. FINDINGS: A single living intrauterine gestation is present. Presentation: Vertex Placenta: Placental position is anterior, without previa. Amniotic fluid index: 10.4 cm, 16.4 for gestational age. heart rate: 158 beats per minutes. Maternal cervical canal: Closed. Estimated gestational age from initial scan: 34 weeks, 6 days. IMPRESSION: 1. Single live intrauterine gestation in vertex position with an MELINDA of 10.4 cm. Reviewed by: Charmaine Holguin MD on 11/15/2023 4:51 PM PDT Approved by: Charmaine Holguin MD on 11/15/2023 4:51 PM PDT Station ID: [id number]
== END 2023-11-14 18:49 | disposition home or self-care (01) ==
LOC: DI 18:48
PROVIDERS: ATTEND Obstetrics & Gynecology
DX: O24.414 Gestational diabetes mellitus in pregnancy, insulin controlled (principal); Z3A.34 34 weeks gestation of pregnancy

== ENCOUNTER 2023-11-16 10:00 | Outpatient (CLI) | payer MEDICAID ==
[2023-11-16 10:39] VITALS: BP 111/65; O2SAT 98
--- NOTE | 2023-11-16 15:32 | PROCEDURE REPORT ---
- HPI Diagnosis/Indication for NST: Gestational Diabetes Current EDU 12/20/23 Gestation 35 Weeks and 1 Days 2 Para 1 Vital Signs Temperature 98.2 F 11/16/23 10:13 Heart Rate 96 11/16/23 10:13 Respiratory Rate 16 11/16/23 10:13 Blood Pressure 111/65 11/16/23 10:13 O2 Saturation 98 11/16/23 10:13 Temperature 98.2 F 11/16/23 10:25 Heart Rate 96 11/16/23 10:13 Respiratory Rate 16 11/16/23 10:13 Blood Pressure 111/65 11/16/23 10:13 O2 Saturation 98 11/16/23 10:13 If not protocol: Oxygen Flow, liters/minute - NST Procedure NST Procedure Start Date 11/16/23 Start Time 10:08 Stop Time 10:51 Vibroacoustic Stimulation Used No Patient States Movement Yes - Results and Plan Findings/Impression: Reactive for of 32 weeks gestation or more. NST tracing contains at least two heart rate accelerations that are at least 15 beats per minute above the baseline rate and lasting at least 15 seconds from onset to return to baseline within a twenty minute period. Plan: care as scheduled
== END 2023-11-16 10:53 | disposition home or self-care (01) ==
LOC: WFO 10:00 → FBP 10:15 → WFO 10:53
PROVIDERS: ATTEND Obstetrics & Gynecology
DX: O24.414 Gestational diabetes mellitus in pregnancy, insulin controlled (principal); Z3A.35 35 weeks gestation of pregnancy
CPT/HCPCS: 59025

== ENCOUNTER 2023-11-17 22:02 | Outpatient (CLI) | payer MEDICAID ==
--- NOTE | 2023-11-18 12:40 | Ultrasound Report ---
PROCEDURE: OB Follow up INDICATIONS: GDM OUTSIDE/PRIOR DATING DATA: Last menstrual period (LMP): Unknown. LMP-based estimated date of delivery (FLOR): Unknown. First dating scan (date and location): 06/17/2023. Estimated date of delivery (FLOR) from first dating scan: 12/20/2023. The below data below was generated using the ultrasound FLOR of 12/20/2023 TECHNIQUE: Real-time scanning was performed of the fetus, with image documentation and biometric measurements. Endovaginal scanning: Not performed. COMPARISON: OB ultrasound 11/14/2023. FINDINGS: General: A single living intrauterine gestation is present. Presentation: Vertex Placenta: Placental position is anterior, without previa. Amniotic fluid index: 10.6 cm, within normal limits for gestational age. Largest pocket 3.6 cm. heart rate: 140 beats per minute. Maternal cervical canal: Not well seen. biometrics: Biparietal diameter: 8.4 cm, 33 weeks 6 days. 16 percentile. Head circumference: 32.6 cm, 37 weeks 0 days., 61st percentile. Abdominal circumference: 31.5 cm, 35 weeks 3 days. 62nd percentile. Femur length: 6.8 cm, 34 weeks 5 days. 29th percentile. Estimated gestational age from initial scan: 35 weeks 2 days Composite gestational age from present scan: 35 weeks 2 days Estimated weight and percentile: 2629 g, 47 percentile. Measurement variability in biometric dating: +/- 10 days from 12-20 weeks gestation, +/- 2 weeks from 20-30 weeks gestation, +/- 3 weeks at 30 weeks gestation or more. IMPRESSION: 1. Nelson living intrauterine at 35 weeks 2 days based on today's ultrasound. Fetus is i n the 47th percentile for weight. 2. Normal placenta and amniotic fluid. Reviewed by: Oh Figueredo MD on 11/18/2023 12:39 PM PDT Approved by: Oh Figueredo MD on 11/18/2023 12:39 PM PDT Station ID: [id number]
== END 2023-11-17 22:03 | disposition home or self-care (01) ==
LOC: DI 22:02
PROVIDERS: ATTEND Obstetrics & Gynecology
DX: O09.93 Supervision of high risk pregnancy, unspecified, third trimester (principal); O24.414 Gestational diabetes mellitus in pregnancy, insulin controlled; Z3A.35 35 weeks gestation of pregnancy
CPT/HCPCS: 36415; 80053; 82570; 83036; 84156; 85027; 86592

== ENCOUNTER 2023-11-17 22:45 | Outpatient (CLI) | payer MEDICAID ==
[2023-11-17 23:00] LABS: HCT - HEMATOCRIT 37.8 % (37.0-47.0); HGB - HEMOGLOBIN 12.8 g/dL (12.0-16.0); MEAN CORPUSCULAR HEMOGLOBIN 29.6 pg (27.0-31.0); MEAN CORPUSCULAR HGB CONC 33.9 g/dL (32.0-36.0); MEAN CORPUSCULAR VOLUME 87.5 fL (81.0-99.0); MEAN PLATELET VOLUME 10.5 fL (7.9-10.8); RED BLOOD COUNT 4.32 10^6/uL (4.20-5.40); RED CELL DISTRIBUTION WIDTH 13.8 % (12.0-15.0); WHITE BLOOD COUNT 8.9 x10^3/uL (4.8-10.8)
[2023-11-17 23:19] LABS: ALBUMIN 3.7 g/dL (3.2-5.5); ALBUMIN/GLOBULIN RATIO 1.4 (1.0-2.2); BILIRUBIN,TOTAL 0.3 mg/dL (0.2-1.0); CALCIUM 9.4 mg/dL (8.5-10.3); CREATININE 0.5 mg/dL (0.6-1.3); POTASSIUM 3.5 mmol/L (3.5-4.5); TOTAL PROTEIN 6.4 g/dL (6.4-8.9)
[2023-11-17 23:19] LABS: CREATININE,URINE 35.9 mg/dL; PROTEIN/CREATININE RATIO,URINE 0.2 (<=0.2)
[2023-11-18 09:53] LABS: ESTIMATED AVERAGE GLUCOSE 97 mg/dL (70-100)
== END 2023-11-17 22:46 | disposition home or self-care (01) ==
LOC: LAB 22:45
PROVIDERS: ATTEND Obstetrics & Gynecology
DX: O09.93 Supervision of high risk pregnancy, unspecified, third trimester (principal); O24.414 Gestational diabetes mellitus in pregnancy, insulin controlled
CPT/HCPCS: 36415; 80053; 82570; 83036; 84156; 85027; 86592

== ENCOUNTER 2023-12-04 08:00 | Outpatient (CLI) | payer MEDICAID | END 2023-12-04 23:59 | disposition home or self-care (01) | LOC: LAB.WC 08:00 | PROVIDERS: ATTEND Obstetrics & Gynecology | DX: O09.93 Supervision of high risk pregnancy, unspecified, third trimester (principal) | CPT/HCPCS: 87081; 87797 ==

== ENCOUNTER 2023-12-16 05:30 | Inpatient (IN) | payer MEDICAID ==
[2023-12-16] MEDS ORDERED: TRANEXAMIC ACID IN NACL 1,000 MG/100 ML BAG IV PRN (05:58)
[2023-12-16] MEDS ORDERED: LACTATED RINGERS 1,000 ML IV PRN (05:58)
[2023-12-16] MEDS ORDERED: lidocaine 1% 20 ML MDV ID PRN (05:58)
[2023-12-16] MEDS ORDERED: LABETALOL 20 MG/4 ML SYRINGE IVP PRN ×3 (05:58)
[2023-12-16] MEDS ORDERED: miSOPROStoL 200 MCG TABLET PR PRN (05:58)
[2023-12-16] MEDS ORDERED: METHYLERGONOVINE 0.2 MG/ML VIAL IM PRN (05:58)
[2023-12-16] MEDS ORDERED: CARBOPROST TROMETHAMINE 250 MCG/ML VIAL IM PRN (05:58)
[2023-12-16] MEDS ORDERED: OXYTOCIN 10 UNIT/ML VIAL IM PRN (05:58)
[2023-12-16] MEDS ORDERED: ONDANSETRON 4 MG/2 ML VIAL IVP PRN ×2 (05:58→07:48)
[2023-12-16] MEDS ORDERED: SODIUM CHLORIDE FLUSH 0.9% 10 ML SYRINGE IVP PRN (05:58)
[2023-12-16] MEDS ORDERED: hydrALAZINE INJ 20 MG/ML VIAL IVP PRN ×2 (05:58)
[2023-12-16] MEDS ORDERED: miSOPROStoL 200 MCG TABLET BC PRN (05:58)
[2023-12-16] MEDS ORDERED: TERBUTALINE 1 MG/ML VIAL SUBQ PRN (05:58)
[2023-12-16] MEDS ORDERED: NIFEdipine 10 MG CAPSULE PO PRN (05:58)
[2023-12-16] MEDS ORDERED: fentaNYL 100 MCG/2 ML VIAL IVP PRN (05:58)
[2023-12-16] MEDS ORDERED: LIDOCAINE 2%-EPI 1:100000 20 ML MDV ONE (06:20)
[2023-12-16] MEDS ORDERED: ROPIVACAINE 0.2% 200 MG/100 ML BAG EP ONE (06:20)
[2023-12-16] MEDS: LACTATED RINGERS 1,000 ML IV SCH (06:28)
[2023-12-16 06:29] LABS: BASOPHILS % (AUTO) 0.4 %; EOSINOPHILS # (AUTO) 0.2 10^3/uL (0.0-0.7); EOSINOPHILS % (AUTO) 1.9 %; HCT - HEMATOCRIT 40.6 % (37.0-47.0); HGB - HEMOGLOBIN 13.6 g/dL (12.0-16.0); LYMPHOCYTES # (AUTO) 3.5 10^3/uL (1.5-3.5); LYMPHOCYTES % (AUTO) 33.7 %; MEAN CORPUSCULAR HEMOGLOBIN 29.2 pg (27.0-31.0); MEAN CORPUSCULAR HGB CONC 33.5 g/dL (32.0-36.0); MEAN CORPUSCULAR VOLUME 87.3 fL (81.0-99.0); MEAN PLATELET VOLUME 11.1 fL (7.9-10.8); MONOCYTES # (AUTO) 0.6 10^3/uL (0.0-1.0); MONOCYTES % (AUTO) 5.8 %; NEUTROPHILS % (AUTO) 57.7 %; PLT - PLATELET COUNT 242 10^3/uL (130-450); RED BLOOD COUNT 4.65 10^6/uL (4.20-5.40); RED CELL DISTRIBUTION WIDTH 14.2 % (12.0-15.0); WHITE BLOOD COUNT 10.4 x10^3/uL (4.8-10.8)
[2023-12-16] MEDS: AMPICILLIN 2 GM in SODIUM CHLORIDE 0.9% MINIBAG 100 ML IV ONE (06:34)
[2023-12-16] MEDS ORDERED: fentaNYL 100 MCG/2 ML VIAL ONE (06:36)
[2023-12-16 06:46] LABS: ALBUMIN 3.8 g/dL (3.2-5.5); ALBUMIN/GLOBULIN RATIO 1.2 (1.0-2.2); BILIRUBIN,TOTAL 0.4 mg/dL (0.2-1.0); CALCIUM 9.6 mg/dL (8.5-10.3); CREATININE 0.5 mg/dL (0.6-1.3); POTASSIUM 3.7 mmol/L (3.5-4.5)
[2023-12-16] MEDS ORDERED: SODIUM CHLORIDE 0.9% 10 ML VIAL IVP ONE (06:51)
[2023-12-16] MEDS ORDERED: NALOXONE 0.4 MG/ML VIAL IVP PRN (07:48)
[2023-12-16] MEDS ORDERED: ROPIVACAINE 0.2% 200 MG/100 ML BAG EP PRN (07:48)
[2023-12-16] MEDS ORDERED: ePHEDrine 50 MG/ML VIAL IVP PRN (07:48)
--- NOTE | 2023-12-16 07:48 | ANESTHESIA ---
Pre-Anesthesia VS, & Labs - Diagnosis Active labor - Procedure Labor Epidural Vital Signs: Temp Pulse Resp BP Pulse Ox O2 Flow Rate 36.5 C 127 H 18 118/66 12/16/23 06:01 12/16/23 06:01 12/16/23 06:01 12/16/23 06:01 Height: 4 ft 11 in Weight (kg): 80.739 kg Body Mass Index: 35.9 BMI Classification: Obese - Is Patient ?: Yes - Lab Results Current Lab Results: Laboratory Tests 12/16/23 06:30: WBC 10.4, RBC 4.65, Hgb 13.6, Hct 40.6, MCV 87.3, MCH 29.2, MCHC 33.5, RDW 14.2, Plt Count 242, MPV 11.1 H, Neut # (Auto) 6.0, Lymph # (Auto) 3.5, Collin # (Auto) 0.6, Eos # (Auto) 0.2, Baso # (Auto) 0.0, Absolute Nucleated RBC 0.00, Nucleated RBC % 0.0 12/16/23 06:25: POC Whole Bld Glucose 96 12/16/23 06:00: Sodium 134 L, Potassium 3.7, Chloride 106, Carbon Dioxide 17 L, Anion Gap 11.0, BUN 8, Creatinine 0.5 L, Estimated GFR (MDRD) 147, Glucose 101, Calcium 9.6, Total Bilirubin 0.4, AST 16, ALT 14, Alkaline Phosphatase 253 H, Total Protein 7.0, Albumin 3.8, Globulin 3.2, Albumin/Globulin Ratio 1.2 Fish Bones: 12/16/23 06:30 12/16/23 06:00 Home Medications and Allergies Active Medications Carboprost Tromethamine (Carboprost Tromethamine 250 Mcg/Ml Vial) 250 mcg IM .ONCE PRN PRN Reason: Hemorrhage Fentanyl (Fentanyl 100 Mcg/2 Ml Vial) 50 mcg IVP Q1H PRN PRN Reason: Severe Pain (score 7-10) Hydralazine HCl (Hydralazine Inj 20 Mg/Ml Vial) 5 - 10 mg IVP Q20M PRN; Protocol PRN Reason: SBP> or= 160 OR DBP> or= 110 Hydralazine HCl (Hydralazine Inj 20 Mg/Ml Vial) 10 mg IVP .ONCE PRN; Protocol PRN Reason: SBP> or= 160 OR DBP> or= 110 Lactated Ringer's (Lr) 500 mls @ 999 mls/hr IV PRN PRN PRN Reason: intolerance of labor Oxytocin/Sodium Chloride (Pitocin/Sodium Chloride) 500 mls @ 999 mls/hr IV PRN PRN; Protocol PRN Reason: POST- HEMORR PREVENTION Tranexamic Acid (Tranexamic 1,000 Mg/100ml-Nacl) 1,000 mg in 100 mls @ 600 mls/hr IV Q30M PRN PRN Reason: EBL >1200mL and within 3hr Lactated Ringer's (Lr) 1,000 mls @ 125 mls/hr IV .Q8H REMEDIOS Last Admin: 12/16/23 06:28 Dose: 125 mls/hr Ampicillin Sodium 1 gm/ Sodium (Chloride) 100 mls @ 200 mls/hr IV Q4H REMEDIOS Labetalol HCl (Labetalol 20 Mg/4 Ml Syringe) 20 - 80 mg IVP Q10M PRN; Protocol PRN Reason: SBP> or= 160 OR DBP> or= 110 Labetalol HCl (Labetalol 20 Mg/4 Ml Syringe) 20 mg IVP .ONCE PRN; Protocol PRN Reason: SBP> or= 160 OR DBP> or= 110 Labetalol HCl (Labetalol 20 Mg/4 Ml Syringe) 20 - 40 mg IVP Q10M PRN; Protocol PRN Reason: SBP> or= 160 OR DBP> or= 110 Lidocaine HCl (Lidocaine 1% 20 Ml Mdv) 20 ml ID .ONCE PRN PRN Reason: PERINEAL REPAIR Stop: 12/19/23 05:58 Methylergonovine Maleate (Methylergonovine 0.2 Mg/Ml Vial) 0.2 mg IM .ONCE PRN PRN Reason: Hemorrhage Misoprostol (Misoprostol 200 Mcg Tablet) 600 mcg BC .ONCE PRN PRN Reason: Hemorrhage Misoprostol (Misoprostol 200 Mcg Tablet) 800 mcg NM .ONCE PRN PRN Reason: Hemorrhage Nifedipine (Nifedipine 10 Mg Capsule) 10 - 20 mg PO Q20M PRN; Protocol PRN Reason: SBP> or= 160 OR DBP> or= 110 Ondansetron HCl (Ondansetron 4 Mg/2 Ml Vial) 4 mg IVP PRN PRN PRN Reason: Nausea / Vomiting Oxytocin (Oxytocin 10 Unit/Ml Vial) 10 unit IM .ONCE PRN PRN Reason: Step One if no IV access. Sodium Chloride (Sodium Chloride Flush 0.9% 10 Ml Syringe) 10 ml IVP PRN PRN PRN Reason: NEEDED PER PROVIDER ORDERS Terbutaline Sulfate (Terbutaline 1 Mg/Ml Vial) 0.25 mg SUBQ .ONCE PRN PRN Reason: Tachystole Aspirin [[place] Aspirin] 09/16/23 Pnv No.95/Ferrous Fum/Folic AC [ Tablet] 09/16/23 Famotidine [Acid Fisheries Technician] 20 mg PO BID 11/16/23 metFORMIN [Glucophage] 500 mg PO ONCE 11/16/23 Allergies/Adverse Reactions: Allergies Allergy/AdvReac Type Severity Reaction Status Date / Time No Known Drug Allergies Allergy Verified 09/16/23 21:22 Anes History & Medical History - Medical History Smoking Status: Never smoker Exam General: Alert, Oriented x3, Cooperative Dental: WNL Mouth Openin Fingerbreadth Mallampati classification: II Thyromental Distance: 4-6 cm Plan Anesthesia Type: Epidural Consent for Procedure(s) Verified and Reviewed: Yes Code Status: Attempt Resuscitation ASA classification: 2-Mild systemic disease Is this case an emergency?: No
[2023-12-16] MEDS: FAMOTIDINE 20 MG/2 ML VIAL IVP SCH (09:48)
[2023-12-16] MEDS: AMPICILLIN 1 GM in SODIUM CHLORIDE 0.9% MINIBAG 100 ML IV SCH (10:19)
--- NOTE | 2023-12-16 11:00 | PHARMACY PROGRESS NOTE ---
- Best Possible Medication History Admit Date and Time: 12/16/23 0550 Processed by: Pharmacy Medications reviewed in ED?: No Medication History completed: Yes Patient Interview: Pt unable to participate Secondary Source(s): Insurance records (Medication Reconciliation completed by Refrigeration Systems InstallerMarco, with assistance from bedside RN.) As the person ultimately responsible for medication therapy, providers are able to order a medication from an existing home medication list in [facility] via the "Reconcile Routine" prior to Confirmation of that medication by youth accommodation support worker. Such practice is discouraged except when the physician, in their clinical judgment, deems that a medical need exists for a medication without regard to previous use.
[2023-12-16] MEDS: OXYTOCIN/SODIUM CHLORIDE 500 ML IV PRN (12:10)
[2023-12-16] MEDS: IBUPROFEN 600 MG TABLET PO SCH (13:33)
--- NOTE | 2023-12-16 13:34 | HISTORY & PHYSICAL EXAMINATION ---
Admit History - Visit Reason Visit Reason: Contractions, Membranes rupture, Bloody show, Bleeding - moderate - : 2 Parity: 1 Premature: 0 Ectopic: 0 : 0 Care: positive: [facility] Risk/History: positive: None Complications This : positive: None Smoking Status: Never smoker - Mother's Labs Mother's Blood Type: positive: A Mother's RH: positive: Positive GBS: positive: Group B Strep Positive Rubella Status: positive: Immune - Other Maternal History Other Maternal History: HPI: This 28yo @ 39+3 weeks confirmed by 13+2 week ultrasound presented to L&D after raman through the night and noting an increase in vaginal bleeding. The bleeding was dark and didn't seem to be active at the time of admission. She desires an epidural then to discuss AROM as she progressed very quickly to delivery this way with her last labor. She has been a patient of [facility] for the duration of . complicated by elevated 1 hour glucose, which she had been profiling. Declined insulin therapy. Started Metformin on 10/22/23 and increased her dose to 38 weeks prior to delivery. Desires sterilization prior to discharge but understands this is dependent on many factors. No significant N/V, No Headache, visual changes or right upper quadrant abdominal pain. Denies urinary urgency or dysuria. She has a history of gestational hypertension but BP has been good through this . Compliant with LDASA throughout. Well supported by female family members x3. ROS: All other symptoms reviewed and were negative except per HPI. Medical Hx: Hx gestational httn. Surgical Hx: None Social Hx: Not in relationship with FOB. Well supported by other female family members. Denies current use of alcohol or other recreational drugs. Family Hx: Denies family history of congenital anomalies, Cystic Fibrosis or chromosomal abnormalities OB Hx: G1: 2019 G2: Current Last u/s EFW: 11/17/23 2629g, 47% Total maternal weight gain: 12# Dating. LMP: unknown FLOR by LMP: N/A 06/17/2023 /13+3 Final FLOR: 12/20/2023 Desires sterility - consents signed 11/11 Pre- Weight:166.4 BMI: 33.73 Blood type: A+ Rh: + Antibody: Negative CBC: PLT 204 HCT 37.1 HGB 12.8 RUB: Immune VZV: Immune HBsAg: Negative HepC: NR RPR/AB-EIA: NR HIV: NR PAP: 06/20/2023 Normal GC/CT: 06/20/2023 Negative HSV:denies in self and partner Genetic testing: MaterniT- 07/02/2023 Screen Negative Quad/AFP normal negat jody. Covid: vaccinated Flu:given 06/05/23 FAS: borderline thickened nuchal fold- [id number]: no elevated genetic risk EFW 38% 3 VC anterior placenta no previa MELINDA normal 50gm OGCT: 147. Profiling TDAP: 09/30 Breast Pump: Given 3rd trimester H/H 12.8/37.8 PLT 214 RPR - NR GBS: POSITIVE Delivery plan:39-week induction with immediate tubal ligation if able. Contraception: tubal if able on L&D. Paragard if not. Physical exam: Normocephalic, atraumatic Heart RRR Lungs: No increased work of breathing. Abdomen gravid, soft, nontender. EFW 3800 FHR baseline 138, moderate variability, + accelerations, no decelerations Contractions palpate moderate every 3-6 minutes with soft resting tone SVE 5cm , vertex, membranes intact, increased bloody show Bilateral LE's no edema Mood is good. Assessment: 28 yo @ 39+3 weeks gestation by 13+3 wk U/S Active labor Increased bloody show FHR 130's Cat I GBS Positive Plan: Admit to [facility] for epidural pain management and expectant management of labor Continuous monitoring Monitor for further vaginal bleeding. Anticipate . Patient verbally consents to my participation in her care in my role as a student nurse casting and locker room servicer. ANDREA Phillips, Student Nurse Oil And Gas Lease Pumper (Bere Lamar) - HPI Current EDU 12/20/23 Gestation 39 Weeks and 3 Days 2 Para 1 Vital Signs Temperature 97.7 F 12/16/23 05:35 Temperature 99.1 F 12/16/23 16:19 Heart Rate 93 12/16/23 16:19 Respiratory Rate 15 12/16/23 16:19 Blood Pressure 107/72 12/16/23 16:19 O2 Saturation 98 12/16/23 16:19 If not protocol: Oxygen Flow, liters/minute - NST Procedure NST Procedure Start Date 12/16/23 Start Time 06:00 Stop Time 06:20 Vibroacoustic Stimulation Used No Patient States Movement Yes Meds/Allgy - Home Medications Home Medications: Ambulatory Orders Medication Instructions Recorded Confirmed Aspirin [Steele Aspirin] 81 mg PO DAILY 09/16/23 12/16/23 Pnv No.95/Ferrous Fum/Folic AC 1 tab PO DAILY 09/16/23 12/16/23 [ Tablet] Famotidine [Acid Human Projectile] 20 mg PO BID 11/16/23 12/16/23 Metformin HCl [Metformin ER 500 mg PO BID 12/16/23 12/16/23 Osmotic] - Allergies Allergies/Adverse Reactions: Allergies Allergy/AdvReac Type Severity Reaction Status Date / Time Latex, Natural Rubber Allergy Unknown Verified 12/16/23 15:45 Physical - Abdominal Exam Vital Signs: Temp Pulse Resp BP Pulse Ox O2 Flow Rate 99.1 F 93 15 107/72 98 12/16/23 16:19 12/16/23 16:19 12/16/23 16:19 12/16/23 16:19 12/16/23 16:19 Plan for Labor - Plan For Labor I expect patient to be DC'd or transferred within 96 hours.: Yes - Plan For Labor Plan for Labor: H&P reviewed and I was there with Bere. Agree with above narrative. (Felicia Moore)
[2023-12-16] MEDS: ACETAMINOPHEN 325 MG TABLET PO PRN (13:36)
--- NOTE | 2023-12-16 13:45 | DELIVERY NOTE ---
<Bere Lamar - Last Filed: 12/16/23 16:29> Delivery Note - Labor Labor: positive: Spontaneous - Infant Delivery Method Delivery Method: positive: Spontaneous vaginal delivery - Presentation Presentation: positive: Vertex, LAILA - left occiput anterior - Nuchal Cord Nuchal Cord: positive: None - Anesthetic Anesthetic Type: - Amniotic Fluid Description Amniotic Fluid Description: positive: Clear - Episiotomy Type Episiotomy Type: positive: None - Laceration Laceration: positive: None - Delivery Outcome Delivery Outcome: positive: Livebirth - [place]: positive: Placed in direct skin contact with mother, Bulb syringe, Stimulated, Warmed, [place] used [place] sex: positive: Male - Cord Cord: positive: 3 vessels - Placenta Placenta: positive: Intact, Spontaneous - Estimated Blood Loss Estimated Blood Loss (in cc): 200 - Post Delivery Events Post Delivery Events: positive: No post delivery events - Delivery Comments (Free Text/Narrative) Delivery Comments (Free Text/Narrative): This 28-year-old, @ 39 weeks gestation by 13+2 week ultrasound. Cervix was 5cm and Vertex presentation by exam. GBS positive, treated. FHR pattern demonstrated 120's -30's baseline in a category I prior to second stage. Epidural placed upon maternal request. AROM occurred @ 1103. She then progressed to complete/complete @ 1153 and second stage began : Normal spontaneous vaginal delivery of a viable male 12/16/2023 @ 1206. No nuchal cord. The was placed on maternal abdomen, stimulated, dried and placed skin to skin. Apgars 8&9 @ 1 & 5 minutes. The umbilical cord was allowed to stop pulsating at which time it was doubly clamped by delivering provider and cut. 3VC. Cord blood was obtained. Fundal massage and gently cord traction applied for active management of the third stage, placenta delivered spontaneously and intact. EBL 200. Placenta was WAS NOT sent to pathology. Pitocin administered via IV for hemostasis and added to the IV fluid and allowed to run freely. Uterine massage was performed until uterus was deemed firm. Fourth stage: Uterine fundus firm and there is no excessive bleeding. The perineum, vagina and cervix were inspected and found to be intact. Family bonding well. Both mother and baby are in stable condition. Needle and sponge counts were correct. Patient verbalized consent for my participation in her delivery in my role as Student Nurse Mercantile Reporter. ANDREA Phillips, Student Nurse Mercantile Reporter <Felicia Moore - Last Filed: 12/16/23 17:06> Delivery Note - Delivery Comments (Free Text/Narrative) Delivery Comments (Free Text/Narrative): present with Bere for care and delivery. Agree with above narrative.
[2023-12-16] MEDS ORDERED: LACTATED RINGERS 1,000 ML IV SCH (14:00)
--- NOTE | 2023-12-16 14:38 | CONSULTATION NOTE ---
Consultation Report: called to OB by RN due to difficulty removing epidural catheter. Pt positioned L lateral in position with knees to chest. Epidural catheter removed easily, tip intact. Intact catheter demonstrated to patient and RN showing tip intact.
[2023-12-16] MEDS: metFORMIN 500 MG TABLET PO SCH (17:05)
[2023-12-16] MEDS ORDERED: METFORMIN HCL 500 MG PO SCH (21:00)
[2023-12-16] MEDS: FAMOTIDINE 20 MG TABLET PO SCH (21:10)
[2023-12-17] MEDS: PRENATAL VITAMIN TABLET PO SCH (08:06)
[2023-12-17] MEDS ORDERED: [UNRECOGNIZED DRUG - REMARK] PO SCH (09:00)
--- NOTE | 2023-12-17 11:49 | PROVIDER PROGRESS NOTE ---
Subjective - Prog Note Date Prog Note Date: 12/17/23 Prog Note Time: 11:00 - Subjective Pt reports feeling: Improved Subjective: Comfortable, although has not had a BM in a few days. Appropriate lochia. Ambulating. Voiding. Tolerating regular diet. . Mood is good. Objective - Vital Signs/Intake & Output Reviewed Vital Signs: Yes Vital Signs: Vital Signs x48h Temp Pulse Resp BP Pulse Ox 12/17/23 09:55 98.1 F 75 16 123/71 99 12/17/23 04:23 98.1 F 72 18 116/78 Intake & Output: Intake & Output 12/14/23 12/15/23 12/16/23 12/17/23 23:59 23:59 23:59 23:59 Intake Total 1700 Output Total 1775 Balance -75 - Objective General Appearance: positive: No acute distress Respiratory: positive: No respiratory distress Abdomen: positive: Non-tender (FF) Skin: positive: Color nml Extremities: positive: Non-tender Neurologic/Psychiatric: positive: Oriented x3 - Lab Results Fish Bones: 12/16/23 06:30 12/16/23 06:00 Other Labs: Lab Results x24hrs 12/16/23 Range/Units 13:21 POC Whole Bld Glucose 95 (70 - 100) mg/dL Assessment/Plan - Problem List (1) care following vaginal delivery Impression: 28yo s/p 12/16/23 1206 PPD#1 doing well - Scheduled for sterilization tomorrow - Colace ordered for constipation - Continue care - Anticipate discharge tomorrow
[2023-12-17] MEDS: DOCUSATE SODIUM 100 MG CAPSULE PO SCH (13:42)
[2023-12-18] MEDS ORDERED: PROPOFOL 200 MG/20 ML VIAL IVP ONE ×2 (05:49→10:11)
[2023-12-18] MEDS ORDERED: ONDANSETRON 4 MG/2 ML VIAL ONE (05:49)
[2023-12-18] MEDS ORDERED: DEXAMETHASONE 4 MG/ML VIAL ONE (05:49)
[2023-12-18] MEDS ORDERED: ROCURONIUM 50 MG/5 ML VIAL ONE (05:49)
[2023-12-18] MEDS ORDERED: fentaNYL 100 MCG/2 ML VIAL ONE (05:52)
[2023-12-18] MEDS ORDERED: MIDAZOLAM 2 MG/2 ML VIAL ONE (05:52)
[2023-12-18] MEDS ORDERED: ceFAZolin (2G) 2 GM in SODIUM CHLORIDE 0.9% MINIBAG 100 ML IV ONE (07:00)
[2023-12-18] MEDS: GABAPENTIN 400 MG CAPSULE PO SCH (07:31)
[2023-12-18] MEDS: CELECOXIB 100 MG CAPSULE PO ONE (07:31)
[2023-12-18 07:53] LABS: BASOPHILS % (AUTO) 0.4 %; EOSINOPHILS # (AUTO) 0.3 10^3/uL (0.0-0.7); EOSINOPHILS % (AUTO) 3.4 %; HCT - HEMATOCRIT 37.1 % (37.0-47.0); HGB - HEMOGLOBIN 12.3 g/dL (12.0-16.0); LYMPHOCYTES # (AUTO) 3.9 10^3/uL (1.5-3.5); MEAN CORPUSCULAR HEMOGLOBIN 29.5 pg (27.0-31.0); MEAN CORPUSCULAR HGB CONC 33.2 g/dL (32.0-36.0); MEAN PLATELET VOLUME 10.8 fL (7.9-10.8); MONOCYTES # (AUTO) 0.4 10^3/uL (0.0-1.0); MONOCYTES % (AUTO) 4.5 %; NEUTROPHILS # (AUTO) 4.7 10^3/uL (1.5-6.6); NEUTROPHILS % (AUTO) 50.3 %; PLT - PLATELET COUNT 231 10^3/uL (130-450); RED BLOOD COUNT 4.17 10^6/uL (4.20-5.40); RED CELL DISTRIBUTION WIDTH 14.2 % (12.0-15.0); WHITE BLOOD COUNT 9.4 x10^3/uL (4.8-10.8)
[2023-12-18] MEDS: LACTATED RINGERS 1,000 ML IV SCH (07:54)
[2023-12-18] MEDS ORDERED: BUPIVACAINE 0.25% PF 30 ML VIAL ONE (09:12)
[2023-12-18] MEDS ORDERED: LIDOCAINE 1%-EPI 1:100000 20 ML MDV ONE (09:12)
--- NOTE | 2023-12-18 09:22 | ANESTHESIA ---
Pre-Anesthesia VS, & Labs - Diagnosis desires sterility - Procedure tubal ligation via MINI Vital Signs: Temp Pulse Resp BP Pulse Ox O2 Flow Rate 36.8 C 65 18 120/69 99 12/18/23 06:40 12/18/23 06:40 12/18/23 06:40 12/18/23 06:40 12/18/23 06:40 Height: 4 ft 11 in Weight (kg): 80.739 kg Body Mass Index: 35.9 BMI Classification: Obese - Is Patient ?: No - Lab Results Current Lab Results: Laboratory Tests 12/18/23 07:38: POC Whole Bld Glucose 70 12/18/23 07:30: WBC 9.4, RBC 4.17 L, Hgb 12.3, Hct 37.1, MCV 89.0, MCH 29.5, MCHC 33.2, RDW 14.2, Plt Count 231, MPV 10.8, Neut # (Auto) 4.7, Lymph # (Auto) 3.9 H, Saline # (Auto) 0.4, Eos # (Auto) 0.3, Baso # (Auto) 0.0, Absolute Nucleated RBC 0.00, Nucleated RBC % 0.0 12/16/23 13:21: POC Whole Bld Glucose 95 12/16/23 10:14: POC Whole Bld Glucose 81 12/16/23 08:18: POC Whole Bld Glucose 97 12/16/23 06:30: WBC 10.4, RBC 4.65, Hgb 13.6, Hct 40.6, MCV 87.3, MCH 29.2, MCHC 33.5, RDW 14.2, Plt Count 242, MPV 11.1 H, Neut # (Auto) 6.0, Lymph # (Auto) 3.5, Saline # (Auto) 0.6, Eos # (Auto) 0.2, Baso # (Auto) 0.0, Absolute Nucleated RBC 0.00, Nucleated RBC % 0.0 12/16/23 06:25: POC Whole Bld Glucose 96 12/16/23 06:00: Blood Type A POSITIVE, Antibody Screen NEGATIVE 12/16/23 06:00: Sodium 134 L, Potassium 3.7, Chloride 106, Carbon Dioxide 17 L, Anion Gap 11.0, BUN 8, Creatinine 0.5 L, Estimated GFR (MDRD) 147, Glucose 101, Calcium 9.6, Total Bilirubin 0.4, AST 16, ALT 14, Alkaline Phosphatase 253 H, Total Protein 7.0, Albumin 3.8, Globulin 3.2, Albumin/Globulin Ratio 1.2 Fish Bones: 12/18/23 07:30 12/16/23 06:00 Home Medications and Allergies Home Medications: Ambulatory Orders Metformin HCl [Metformin ER Osmotic] 500 mg PO BID 12/16/23 Active Medications Acetaminophen (Acetaminophen 325 Mg Tablet) 650 mg PO Q4HR PRN PRN Reason: Moderate Pain (Level 4-6) Last Admin: 12/17/23 23:37 Dose: 650 mg Docusate Sodium (Docusate Sodium 100 Mg Capsule) 100 mg PO BID [facility] Last Admin: 12/17/23 21:17 Dose: 100 mg Famotidine (Famotidine 20 Mg Tablet) 20 mg PO BID [facility] Last Admin: 12/17/23 21:18 Dose: 20 mg Hydralazine HCl (Hydralazine Inj 20 Mg/Ml Vial) 5 - 10 mg IVP Q20M PRN; Protocol PRN Reason: SBP> or= 160 OR DBP> or= 110 Hydralazine HCl (Hydralazine Inj 20 Mg/Ml Vial) 10 mg IVP .ONCE PRN; Protocol PRN Reason: SBP> or= 160 OR DBP> or= 110 Lactated Ringer's (Lr) 1,000 mls @ 0 mls/hr IV .Q0M [facility] Last Admin: 12/18/23 07:54 Dose: 50 mls/hr Ibuprofen (Ibuprofen 600 Mg Tablet) 600 mg PO Q6H [facility] Last Admin: 12/18/23 06:41 Dose: 600 mg Labetalol HCl (Labetalol 20 Mg/4 Ml Syringe) 20 - 80 mg IVP Q10M PRN; Protocol PRN Reason: SBP> or= 160 OR DBP> or= 110 Labetalol HCl (Labetalol 20 Mg/4 Ml Syringe) 20 mg IVP .ONCE PRN; Protocol PRN Reason: SBP> or= 160 OR DBP> or= 110 Labetalol HCl (Labetalol 20 Mg/4 Ml Syringe) 20 - 40 mg IVP Q10M PRN; Protocol PRN Reason: SBP> or= 160 OR DBP> or= 110 Metformin HCl (Metformin 500 Mg Tablet) 500 mg PO BIDWM [facility] Last Admin: 12/17/23 21:18 Dose: 500 mg Naloxone HCl (Naloxone 0.4 Mg/Ml Vial) 0.1 mg IVP Q2M PRN PRN Reason: RR<8 Nifedipine (Nifedipine 10 Mg Capsule) 10 - 20 mg PO Q20M PRN; Protocol PRN Reason: SBP> or= 160 OR DBP> or= 110 Ondansetron HCl (Ondansetron 4 Mg/2 Ml Vial) 4 mg IVP PRN PRN PRN Reason: Nausea / Vomiting Multivit/Folic Acid/Iron ( Vitamin Tablet) 1 tab PO DAILYWM [facility] Last Admin: 12/17/23 08:06 Dose: 1 tab Sodium Chloride (Sodium Chloride Flush 0.9% 10 Ml Syringe) 10 ml IVP PRN PRN PRN Reason: NEEDED PER PROVIDER ORDERS Aspirin [[place]ryan Aspirin] 81 mg PO DAILY 09/16/23 Pnv No.95/Ferrous Fum/Folic AC [ Tablet] 1 tab PO DAILY 09/16/23 Famotidine [Acid [employer] [facility]] 20 mg PO BID 11/16/23 Metformin HCl [Metformin ER Osmotic] 500 mg PO BID 12/16/23 Allergies/Adverse Reactions: Allergies Allergy/AdvReac Type Severity Reaction Status Date / Time Latex, Natural Rubber Allergy Unknown Verified 12/16/23 15:45 Anes History & Medical History - Medical History Smoking Status: Never smoker - Obstetrical History : 2 Parity: 1 Events: reports: None Complications: reports: None Exam General: Alert, Oriented x3, Cooperative Dental: WNL Mouth Openin Fingerbreadth Mallampati classification: III Thyromental Distance: 4-6 cm Plan Anesthesia Type: Spinal Consent for Procedure(s) Verified and Reviewed: Yes Code Status: Attempt Resuscitation ASA classification: 2-Mild systemic disease Is this case an emergency?: No
[2023-12-18] MEDS ORDERED: ceFAZolin 1 GM VIAL ONE (10:12)
[2023-12-18] MEDS ORDERED: ONDANSETRON 4 MG/2 ML VIAL IVP PRN (10:22)
[2023-12-18] MEDS ORDERED: fentaNYL 100 MCG/2 ML VIAL IVP PRN (10:22)
[2023-12-18] MEDS ORDERED: ePHEDrine 50 MG/ML VIAL IVP PRN (10:22)
[2023-12-18] MEDS ORDERED: NALOXONE 0.4 MG/ML VIAL IVP PRN (10:22)
[2023-12-18] MEDS ORDERED: ATROPINE ABBOJECT 1 MG/10 ML SYRINGE IVP PRN (10:22)
[2023-12-18] MEDS ORDERED: MORPHINE 2 MG/ML CARPUJECT IVP PRN (10:22)
[2023-12-18] MEDS ORDERED: HYDROmorphone 0.5 MG/0.5 ML SYRINGE IVP PRN (10:22)
[2023-12-18] MEDS: LACTATED RINGERS 1,000 ML IV ONE (10:43)
--- NOTE | 2023-12-18 10:54 | OPERATIVE REPORT ---
Operative Report - General Admit Date: 12/16/23 Procedure Date: 12/18/23 Planned Procedure: tubal ligation Pre-Op Diagnosis: Desires sterility Procedure Performed: tubal ligation Post Op Diagnosis: Desires sterility - Procedure Note Primary Surgeon: Manuel Ryan MD Secondary Surgeon: Felicia Moore MD Anesthesia Provider: Keenan Grande CRNA Anesthesia Technique: Spinal Pathology: Bilateral fallopian tubes Estimated Blood Loss (mL): 5 Urine Output (mL): 0 (Voided prior to procedure) Findings: Normal-appearing fallopian tubes. Complications: None - Other Other Information/Narrative: Tubal Prior to surgery, we discussed the risks, alternatives, benefits to tubal ligation. We discussed long-acting control such as IUDs and implants. We had discussion about partner vasectomy and the pros and cons to this including a smaller surgery, and easier recovery. We discussed the general risk of surgery including infection, bleeding, damage to other organs, needing a larger incision. Specific to tubal ligation, we discussed the risk of regret, and discussed that regret is greater in those under 30, without children, and not in stable relationships. Patient says she is confident in her decision to not have any more children. We also discussed the risk of failure, and that less than 1/100 tubal ligation fail, but if it did, she would be at increased risk of ectopic . Patient desires to proceed with bilateral tubal ligation. Patient was taken to the OR where spinal anesthesia was obtained without difficulty. The patient was placed in a dorsal supine position. Time out was taken. Abdomen was prepped and draped in usual sterile fashion. 2 Allis clamps were placed lateral umbilical folds, and lateral traction was applied to facilitate making an infraumbilical skin incision with scalpel. Incision was carried down to the fascia which was incised with Jacob scissors. Peritoneum was identified and entered. Was noted to be free of any adhesions was entered bluntly. Guillermo retractor was placed in the abdomen to facilitate visualiz ation. Patient's left fallopian tube was then identified and brought to the incision and grasped with a Deepwater clamp. The tube was then followed up to the fimbria. Using a second Deepwater then a LigaSure device, the tube was transected from the fimbriated end up to the cornua where it was transected. This was similarly done on the patient's right side. The peritoneum and fascia were then closed in single layer using a 0 Vicryl. Subcutaneous tissue was closed with the remaining 0 Vicryl. Skin was closed with a 4-0 Monocryl in a subcuticular fashion. Incision was covered with Dermabond. The patient tolerated procedure well. Sponge, lap, and needle counts were correct 2. The patient was taken to recovery room in stable condition. I appreciate the assistance of Dr. Moore during this procedure, and the assistance in retraction, visualization, dissection, and overall assistance during the case were instrumental to the patient's wellbeing.
--- NOTE | 2023-12-18 10:56 | Discharge Plan ---
Discharge Plan Problem Reviewed?: Yes Disposition: Home, Self Care Condition: Good Prescriptions: Docusate Sodium 100Mg Capsule [Colace 100Mg Capsule] 100 - 200 mg PO BID PRN #60 cap PRN Reason: Constipation Ibuprofen [Motrin] 600 mg PO Q6H PRN #30 tab PRN Reason: Pain oxyCODONE [Roxicodone] 5 mg PO Q4H PRN #7 tablet PRN Reason: Severe Pain Diet: Regular Activity Restrictions: Additional Comments Shower Restrictions: No Instruction Topics: Depression , Vaginal After No Smoking: If you smoke, Please STOP! Call for help. Follow-up with: Manuel Ryan MD [Provider Admit Priv/Credential] -
[2023-12-18] MEDS ORDERED: LACTATED RINGERS 1,000 ML IV SCH (11:00)
--- NOTE | 2023-12-18 11:05 | DISCHARGE SUMMARY ---
Discharge Summary Admit Date: 12/16/23 Discharge Date: 12/18/23 Discharging Provider: Manuel Ryan MD Code Status: Attempt Resuscitation Condition at Discharge: Good Discharge Disposition: 01 Home, Self Care - DIAGNOSES Admission Diagnoses: 39 weeks gestation Vaginal bleeding Obesity A2 gestational diabetes Desires sterility Discharge Diagnoses with Status of Each Condition: Same Status post spontaneous vaginal delivery Status post tubal ligation - HPI History of Present Illness: Subjective Patient reports she is doing well. Lochia appropriate. Denies heavy bleeding. Ambulating. Pelvic and abdominal pain well-controlled. Tolerating oral intake. Diet: Regular. Voiding without difficulty. Passing flatus. Denies BM. Patient is bonding with baby in room Breast feeding going well. Denies feeling lightheaded, dizzy or excessively fatigued. Control: tubal ligation Objective General: Alert, oriented, no apparent distress. Cardiovascular: Regular rate. Regular rhythm. Lungs: No increased work of breathing. Abdomen: Uterus firm. Below umbilicus. No guarding or rebound. Extremities: No pain on palpation. No cords palpated. Distal pulses intact. Incision: Bandage in place. - HOSPITAL COURSE Hospital Course: Patient admitted for vaginal bleeding and term labor at 39 weeks gestation. She had a unremarkable delivery. course was unremarkable. She had a tubal ligation on postoperative day 2 without complication and was discharged in good condition with her . Apgars: 8/9 Moliminal weight 3247 g. - ALLERGIES Allergies/Adverse Reactions: Allergies Allergy/AdvReac Type Severity Reaction Status Date / Time Latex, Natural Rubber Allergy Unknown Verified 12/16/23 15:45 - MEDICATIONS Home Medications: Ambulatory Orders Medication Instructions Recorded Confirmed Aspirin [[place] Aspirin] 81 mg PO DAILY 09/16/23 12/16/23 Pnv No.95/Ferrous Fum/Folic AC 1 tab PO DAILY 09/16/23 12/16/23 [ Tablet] Famotidine [Acid Machine Plate Stacker] 20 mg PO BID 11/16/23 12/16/23 Metformin HCl [Metformin ER 500 mg PO BID 12/16/23 12/16/23 Osmotic] Docusate Sodium 100Mg Capsule 100 - 200 mg PO BID PRN #60 cap 12/18/23 [Colace 100Mg Capsule] Ibuprofen [Motrin] 600 mg PO Q6H PRN #30 tab 12/18/23 oxyCODONE [Roxicodone] 5 mg PO Q4H PRN #7 tablet 12/18/23 - LABS Result Diagrams: 12/18/23 07:30 12/16/23 06:00 - FOLLOW UP Follow Up: [facility] - TIME SPENT Time Spent in Discharge (Minutes): 30
[2023-12-18 11:23] VITALS: O2SAT 99
[2023-12-18] MEDS: ACETAMINOPHEN 500 MG TABLET PO SCH (11:40)
--- NOTE | 2023-12-18 14:16 | ANESTHESIA POST OP EVALUATION ---
Anesthesia Post Eval - Post Anesthesia Eval Vitals: Last Vital Signs Temp 36.4 C L 12/18/23 10:43 Pulse 59 L 12/18/23 11:08 Resp 18 12/18/23 11:08 BP 104/64 12/18/23 11:08 Pulse Ox 99 12/18/23 11:08 O2 Flow Rate CV Function Including HR & BP: Stable Pain Control: Satisfactory Nausea & Vomiting: Negative Mental Status: Baseline Respiratory Status: Airway Patent Hydration Status: Satisfactory Anesthesia Complications: None
[2023-12-18 17:17] VITALS: BP 133/64
--- NOTE | 2023-12-18 17:18 | Labor Flowsheet ---
Labor Flowsheet Datetime Report Generated by CPN: 12/18/2023 17:17 Datetime: 12/18/2023 16:37 VITAL SIGNS NBP Sys/Juliette/Mean (mmHg): 133 : 64 : 80 Pulse: 87 Datetime: 12/18/2023 06:40 SpO2 (%): 99 Datetime: 12/16/2023 13:35 Pain Relief Measures: Pain Medication Given Datetime: 12/16/2023 13:16 Respirations: 17 Temperature (C): 36.7 Temperature Route: Oral Datetime: 12/16/2023 13:01 PAIN Pain Scale: 8 Pain Presence: Constant Pain Type: Ache Pain Location: Head Pain Goal: 8 Pain Assessment Comments: Awaiting PP med orders Datetime: 12/16/2023 12:41 Membranes Ruptured Date/Time: 12/16/2023 11:03 Datetime: 12/16/2023 12:07 Stage of : Recovery Datetime: 12/16/2023 12:05 Comments: Indeterminate baseline. FHR range 90-150 during pushing. RN and provider continuously a t bedside. Delivery imminent Datetime: 12/16/2023 12:03 I/O Interventions: Garcia Discontinued Datetime: 12/16/2023 12:01 LaborFlag: Labor Datetime: 12/16/2023 12:00 UTERINE ACTIVITY Monitor Mode: Palpation Frequency (min): 1.5-4 Quality: Strong Duration (sec): 50-140 Pattern: Normal: <= 5 Contractions in 10 Minutes Resting Tone (Palpate): Relaxed ASSESSMENT A Monitor Mode: External US FHR Baseline Rate : 135 Variability: Moderate 6-25 bpm Accelerations: None Decelerations: Early; Variable Actions for Decelerations: Side to Side; Sterile Vaginal Exam; Blood Pressure; Provider Notif ied Category: Category II Datetime: 12/16/2023 11:56 COMMUNICATION Communication: Provider at Bedside Datetime: 12/16/2023 11:54 Patient Position/Activity: Left Extreme Datetime: 12/16/2023 11:53 VAGINAL EXAM Dilatation (cm): 10.0 Effacement (%): 100 Station: 0 Exam by: Brianda, ANDREA, SNM STAGE 2 Pushing: Coached on Pushing; No Urge to Push Pushing Position: Pushing with Contractions; Pushing Lithotomy Pushing Progress: Descent with Pushing Datetime: 12/16/2023 11:03 Membrane Status: Ruptured Membranes Rupture Method: Artificial Amniotic Fluid Color: Clear Amniotic Fluid Amount: Moderate Amniotic Fluid Odor: None Datetime: 12/16/2023 10:32 Vital Sign Comments: lateral up Datetime: 12/16/2023 10:30 Monitor Interventions for UA: [place] Adjusted Datetime: 12/16/2023 10:22 MEDICATIONS Antibiotics: Ampicillin IV 1 Gm Datetime: 12/16/2023 09:51 Monitor Interventions for FHR: Ultrasound Adjusted Datetime: 12/16/2023 09:50 Antiemetics/Antacids: Pepcid IV (mg) @ 20 PATIENT CARE IV/Blood Work: IV Bolus Started Datetime: 12/16/2023 07:16 Provider Reviewed Strip: Yes Strip Reviewed by: Dr. Ryan Notification Reason: Labor Status Datetime: 12/16/2023 07:00 FHR Baseline Changes: No Baseline Change Oxygen Method: Room Air Datetime: 12/16/2023 06:44 ANESTHESIA Anesthesia Plans: Epidural Epidural Positioning: Sitting Epidural Procedure: Test Dose Anesthesia Comments: pt tolerated well Datetime: 12/16/2023 06:35 PROCEDURE TIME OUT Procedure Verify: Correct Patient Identity; Correct Side and Site are Marked; Accurate Procedure Co nsent Form; Agreement on Procedure to be Done; Correct Patient Position; Relevant Images and Results are Properly Labeled and Displayed; Addressed Need to Administer Antibiotics or Fluids for Irrigation ; Safety Precautions Based on Patient History or Medication Use Datetime: 12/16/2023 06:23 Patient Care Comments: POC glucose 96 Datetime: 12/16/2023 05:50 Provider Notified (Name): Dr Moore Communication Comments: To admit pt for labor, 5cm
== END 2023-12-18 16:30 | disposition home or self-care (01) | DRG 798 ==
LOC: WFO 05:30 → FBP 05:32 → WFO 05:49 → FBP 05:50
PROVIDERS: ADMIT Obstetrics & Gynecology; ATTEND Obstetrics & Gynecology
PROC: 10907ZC Drainage of Amniotic Fluid, Therapeutic from Products of Conception, Via Natural or Artificial Opening (ICD-10-PCS; principal; 2023-12-16)
PROC: 10E0XZZ Delivery of Products of Conception, External Approach (ICD-10-PCS; 2023-12-16)
PROC: 0UT70ZZ Resection of Bilateral Fallopian Tubes, Open Approach (ICD-10-PCS; 2023-12-18)
DX: O24.425 Gestational diabetes mellitus in childbirth, controlled by oral hypoglycemic drugs (principal); Z37.0 Single live birth; O99.214 Obesity complicating childbirth; O99.824 Streptococcus B carrier state complicating childbirth; Z3A.39 39 weeks gestation of pregnancy; Z30.2 Encounter for sterilization; O99.63 Diseases of the digestive system complicating the puerperium; K59.00 Constipation, unspecified; O46.93 Antepartum hemorrhage, unspecified, third trimester
CPT/HCPCS: 59409; 80053; 85025; 86850; 86900; 86901; A9270; J7120; 36415; 59025; 99215

== ENCOUNTER 2023-12-31 08:00 | Outpatient (CLI) | payer MEDICAID | END 2023-12-31 23:59 | disposition home or self-care (01) | LOC: LAB.WC 08:00 | PROVIDERS: ATTEND Obstetrics & Gynecology | DX: Z39.1 Encounter for care and examination of lactating mother (principal) | CPT/HCPCS: 87086 ==